=== PATIENT | female | born 1955 | race Caucasian/White ===

== ENCOUNTER → 2017-04-18 14:12 | Outpatient (CLI) | payer OTHER, SELFPAY ==
--- NOTE | 2017-04-18 14:16 | RAD_ITS ---
STUDY: X-RAY - LEFT SHOULDER REASON FOR EXAM: Female, 62 years old. Fall 2 weeks ago. Shoulder pain. TECHNIQUE: 4 view(s) of the shoulder. COMPARISON: None. FINDINGS: There is generalized osteopenia. Normal glenohumeral articulation. Normal acromioclavicular joint. Normal acromion. Normal humeral head and visualized proximal humerus. The soft tissue structures are unremarkable. The LAD noted is cardiomegaly, changes of coronary artery bypass grafting and a cardiac pacer. RAD/Shoulder min 2 Views IMPRESSION: Osteopenia with no acute pathology. Electronically Signed: Andriy Suarez MD at 15:04 EST , Service support ,
--- NOTE | 2017-04-18 14:16 | RAD_ITS ---
STUDY: X-RAY CHEST REASON FOR EXAM: Female, 62 years old. One-week history of shortness of breath/dyspnea. TECHNIQUE: PA and lateral views of the chest. COMPARISON: None. FINDINGS: The lungs are clear and expanded. There is no demonstrated pleural abnormality. Sternal cerclage wires and vascular clips are present from a prior sternotomy and coronary artery bypass graft procedure (CABG). Marked degree of cardiomegaly. A left-sided dual-chamber pacemaker is seen. Normal mediastinum and randy. Normal visualized pulmonary arteries. There is atherosclerotic calcification of the aortic arch with tortuosity. There are degenerative changes of the visualized thoracic spine. Normal visualized ribs, clavicles, and shoulders. There is no demonstrated abnormality of the visualized soft tissue structures of the upper abdomen. RAD/Chest PA and Lateral IMPRESSION: Marked degree of cardiomegaly. Electronically Signed: Krishan Guzman MD at 14:38 EST Tel [phone], Service support ,
== END ==
PROVIDERS: Family Provider Internal Medicine; PCP Internal Medicine; Visit Provider Internal Medicine
DX: M25.512 Pain in left shoulder (principal); R06.02 Shortness of breath
CPT/HCPCS: 71046; 73030

== ENCOUNTER 2017-05-10 19:30 | Emergency (ER) | payer OTHER, SELFPAY ==
[2017-05-10 19:31] VITALS: BP 155/89; PULSE 61; RESP 16; TEMP 37.2; O2SAT 94; BMI 29.7
[2017-05-10 19:59] LABS: Absolute Lymphocyte Count 1.35 X10^3/ul (0.83-4.51); Absolute Neutrophil Count 3.4 X10^3/uL (2.0-7.7); Basophil# 0.02 X10^3/uL; Basophil% 0.4 % (0-1); Eosinophil# 0.11 X10^3/uL; Hematocrit 35.4 % (37-47); Hemoglobin 11.2 g/dl (12.0-15.0); Lymphocyte # 1.35 X10^3/ul (4.0); Mean Corp Hgb Conc 31.6 g/gl (32-36); Mean Corpuscular Hgb 26.7 pg (27.0-32.0); Mean Corpuscular Volume 84.3 fL (81-99); Mean Platelet Vol. 9.2 fl (6.2-12.0); Monocyte# 0.52 X10^3/uL; Monocyte% 9.6 % (0-10); Neutrophil % 62.8 % (47-70); Platelet Count 160 K/mm3 (150-450); RBC Distribution Width SD 48.9 fl (35.1-43.9); White Blood Count 5.4 K/mm3 (4.4-11.0)
[2017-05-10 20:09] LABS: Anion Gap 7 (5-15); BUN 23 mg/dL (7-18); BUN/Creat Ratio 24.6 RATIO (10-20); Calcium,Total 9.6 mg/dL (8.5-10.1); Chloride 108 mmol/L (98-107); Creatinine, Serum 0.94 mg/dL (0.55-1.02); EST Glomerular Filtration Rate 64 mL/min (>60); Est Glom Filt Rate - Afr Amer 77 mL/min (>60); Estimated Creatinine Clearance 63.19 ml/min; Glucose 98 mg/dL (74-106); Potassium 3.6 mmol/L (3.5-5.1); Sodium Level 140 mmol/L (136-145)
[2017-05-10 20:11] LABS: POSITIVE COUNT NO; POSITIVE DIFFERENTIAL NO; POSITIVE MORPHOLOGY NO
--- NOTE | 2017-05-10 21:03 | EKG12_ITS ---
Test Reason : Blood Pressure : / mmHG Vent. Rate : 060 BPM Atrial Rate : 073 BPM P-R Int : 000 ms QRS Dur : 188 ms QT Int : 538 ms P-R-T Axes : 000 262 095 degrees QTc Int : 538 ms Ventricular-paced rhythm Biventricular pacemaker detected Abnormal ECG Confirmed by CHRISS RECIO ([id number]), editor trade journal MARCY BROCK ([id number] on 05/12/2017 2:50:18 PM Referred By: ALISTAIR Confirmed By:CHRISS RECIO
[2017-05-10 21:07] VITALS: BP 169/97; PULSE 62; RESP 18; O2SAT 98
[2017-05-10 21:08] VITALS: O2SAT 97
--- NOTE | 2017-05-10 21:09 | RAD_ITS ---
XR Chest 1 View INDICATION: short of breath COMPARISON: April 18, 2017 TECHNIQUE: Frontal view of the chest FINDINGS: Diamond size is enlarged, unchanged from previous exam. Sternotomy wires are noted and a cardiac pacemaker/AICD. The lungs appear clear. RAD/Chest 1 View (Portable) IMPRESSION: Stable cardiomegaly. No evidence of active infiltrate. at 2132 Reported and signed by: Irene Peck MD Electronically Signed: Irene Peck MD at 20:30 EST Tel , Service support ,
[2017-05-10 21:38] LABS: International Normalized Ratio 3.2; Prothrombin Time (Protime)PT. 31.2 SECONDS (11.7-14.9)
[2017-05-10 21:49] LABS: AST(SGOT) 28 U/L (15-37); Alanine Aminotransfer ALT/SGPT 32 U/L (13-56); Albumin, Serum 4.1 g/dL (3.2-5.0); Alkaline Phosphatase 83 U/L (45-117); Bilirubin, Direct 0.15 mg/dL (0.00-0.30); Globulin 3.8 g/dL (2.2-4.2); Protein, Total 7.9 g/dL (6.4-8.2)
[2017-05-10 21:59] LABS: Lipase 315 U/L (73-393)
[2017-05-10 22:14] LABS: BNP,B-Type NATRIURETIC PEPTIDE 849.2 pg/mL (0-100)
[2017-05-10 23:00] VITALS: BP 171/95; PULSE 61; RESP 19; O2SAT 96
--- NOTE | 2017-05-10 23:05 | ED.VISSUMM ---
- ER Visit Summary Date of Service: 05/10/17 Chief Complaint: Chest pain History of Present Illness: The patient is a 62 F presenting with chest pain, shortness of breath. She states she has a band type sensation around her upper abdomen. She also complains of a midsternal chest heaviness x 4days. She complains of shortness of breath which is worse with laying down flat. She denies PE/DVT risk factors. She has a defibrillator/pacemaker, history of mitral valve replacement, history of CAD, NE, CHF, hypertension, hypercholesteremia, A. fib. She is on Coumadin. She has a history of shingles on right upper abdomen several months ago. Physical Examination: Vitals are stable. Patient is afebrile. Alert no acute distress. HEENT exam is unremarkable. Neck is supple. Lungs are clear and equal bilaterally. Heart is regular rate and rhythm. Abdomen is soft nontender nondistended. No rebound or guarding Extremities are unremarkable. Skin is warm and dry. No rash. No focal neurologic deficit. Remainder of exam is unremarkable. Emergency Department Course and Treatment: EKG is paced at rate of 60. She was given aspirin. Chest x-ray shows no acute process. CBC normal except for hemoglobin 11.2. BUN is 23. Liver and lipase are normal. INR is 3.2. Troponin is negative. BNP is 849.2. Pulse ox with ambulation is 93-96%. Discussed with Dr. Lay, hospitalist. She feels patient would be appropriate for discharge home to increase her home Lasix. Patient states she has Lasix at home which she takes as needed. She has not taken it recently. Patient states she would be able to take her Lasix when she returned home today. Her pain has been ongoing for 4 days. Repeat troponin was obtained and is negative. Patient is comfortable with discharge home. She will call Dr. Pack's office tomorrow for follow-up. She is advised return ED if she has any worsening complaints. Disposition: Discharge home Impression: CHF, chest pain This note was generated with [employer] dictation software. It may contain incorrect words, spelling, and punctuation that were not noted in review of the chart prior to signing ED Disposition - Plan for ED Patient: Chief Complaint: Abd Pain Instructions: ED CHF General Referrals: Erin Elizabeth DO [Primary Care Provider] - Tito Pack MD [STAFF PHYSICIAN] -
[2017-05-10 23:26] VITALS: O2SAT 96
[2017-05-10] MEDS: Aspirin 325 MG Tablet PO (23:30)
--- NOTE | 2017-05-11 00:46 | ED.DEP ---
ED Disposition - Plan for ED Patient: Chief Complaint: Abd Pain Instructions: ED CHF General Referrals: Erin Elizabeth DO [Primary Care Provider] - Tito Pack MD [STAFF PHYSICIAN] -
[2017-05-11 01:01] VITALS: RESP 14
== END 2017-05-11 01:02 | disposition home or self-care (01) ==
PROVIDERS: Emergency Provider Emergency Medicine; Family Provider Internal Medicine; PCP Internal Medicine
DX: I50.9 Heart failure, unspecified (principal); R07.9 Chest pain, unspecified; Z95.2 Presence of prosthetic heart valve; I10 Essential (primary) hypertension; E78.00 Pure hypercholesterolemia, unspecified; I48.91 Unspecified atrial fibrillation; Z79.01 Long term (current) use of anticoagulants; Z95.810 Presence of automatic (implantable) cardiac defibrillator; I25.2 Old myocardial infarction
CPT/HCPCS: 71045; 80048; 80076; 83690; 83880; 84484; 85025; 85610; 93005; 99284; A4216

== ENCOUNTER 2017-05-13 11:49 | Outpatient (RCR) | payer OTHER, SELFPAY ==
--- NOTE | 2017-05-13 13:06 | HP.PTEVAL_ITS ---
Patient's Visit Information JAYLEEN WALTERS is a 62 year old F referred to Physical Therapy by Erin NASH with a diagnosis of LEFT SHOULDER PAIN. Date of Evaluation: 05/13/17 Physical Therapist: Eduardo Meza PT, - Visit Plan Frequency: 2x /Week Duration: 4 Weeks Plan: PRECAUTION : PACEMAKER -NO ESTIM. CERVICAL /POSTURAL EX'S,STRENGTHNING,US /MHP - Subjective Subjective: This 62 y/o female presents to physical therapy left shoulder pain due to falling on left arm outstretched. DOI March 28 immediate pain didnt seen DR Santiago and did x-rays-. Patient pain Left UT shoulder to hand. Patient reports with lifting,turning neck ,place pressure on hand.Patient affects ADL'S and housework ,sef hygine and activities above 90 degrees.Patient reports heat makes symptoms better.Patient c/o parathesia/tingling hand.PRECUATION PACEMAKER/ DIFFIBULATOR and 25# lifting. Patient pain affects sleeping. Patient is left hand dominate. Denies HERNANDEZ/nausea/tinnutus.Patient pain affects job demands. VOCATION: [employer] SOCIAL: - Pain Left Shoulder Pain Intensity (Out of 10): 6 Pain Intensity Range: 10 Comment: 8/10 below elbow - Objective POSTURE: rounded shoulders head foward. PALPATION : tender AC. NEURO: C/O denies parathesia/hands,reflexes C5-6-7 2/3. AROM: shoulder flexion 150 flexion ,abd 145 scap plane,ER 90 ,IR 70. 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 MMT: RTC 4/5,DELTOID 4/5 ,WRIST 4/5. CERVICAL ROM: flexion min/mod with pain, extension mod/severe with pain,lateral flexion mod loss,rotation mod with pain to left - Special Tests C/S Radiculapathy - Left Upper limb tension test: Negative C/S Radiculapathy - Right Upper limb tension test: Negative C/S Radiculapathy - Left Spurlings: Positive C/S Radiculapathy - Right Spurlings: Negative C/S Radiculapathy - Left Cervical distraction: Negative C/S Radiculapathy - Right Cervical distraction: Negative Sharp Beba: Negative Vertebral Artery Test: Negative Alar Ligament Test: Negative Cervical Sitting: Protrusion - Mechanical Response: No effect Cervical Sitting: Protrusion - Symptoms During Testing: Increases Cervical Sitting: Protrusion - Symptoms After Testing: No worse Cervical Sitting: Retraction - Mechanical Response: No effect Cervical Sitting: Retraction - Symptoms During Testing: Increases Cervical Sitting: Retraction - Symptoms After Testing: No worse Cervical Sitting: Flexion - Mechanical Response: No effect Cervical Sitting: Flexion - Symptoms During Testing: Increases Cervical Sitting: Flexion - Symptoms After Testing: No worse L Shoulder Drop Sign - IS Test: Negative L Shoulder Empty Can - SS: Negative L Shoulder Neer - Impingement: Negative L Shoulder Kaur Altaf - Impingement: Negative - Goals Goal 1:: Independant with HEP Goal Time Frame: 4-6 Weeks Goal 2:: Independant with posture for ADL'S Goal Time Frame: 4-6 Weeks Goal 3:: Patient decrease symtoms left UT and arm by 50% or greater to improve function with ADL'S Goal Time Frame: 4-6 Weeks Goal 4:: Patient to improve cervical ROM without poain for function of recovery Goal Time Frame: 4-6 Weeks Goal 5:: Patient be able to perform ADL'S and housework tasks with min limations with left UE Goal Time Frame: 4-6 Weeks - Rehabilitation Potential Physical Therapy Diagnosis: This patient appears to have cervical radiculopathy with symptoms radiating to left UT with cervical movement ,+ spurling,- shoulder test, RTC strength is good ,c/o parathesia/tingling. 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 Rehabilitation Potential: Good - Anticipated Interventions Patient/Client Instruction: Educate patient on: Condition, Plan of Care For the Purpose of:: To decrease pain, To increase ROM, To improve nutrient delivery to tissue, To increase oxygenation perfusion, To improve muscle performance and motor function, To improve ability to perform ADL's, To increase tolerance to activity/condition/position, To improve ability of physical actions for home/community/work/leisure, To improve health of tissue, To decrease soft tissue restriction, To assume or resume ADL's, To reduce risk of recurrence, To improve ability to perform tasks related to life management, To improve tolerance to ADL's Therapeutic Exercise to Include: Strength training, Postural training, Flexibilty training, Scapular Strength/Stabilization For the Purpose of:: To decrease pain, To increase ROM, To improve muscle performance and motor function, To improve ability to perform ADL's, To increase tolerance to activity/condition/position, To decrease level of supervision to perform tasks, To improve ability of physical actions for home/ community/work/leisure, To improve gait and locomotor functions, To improve health of tissue, To increase flexibility/ROM, To improve ability to perform tasks related to life management, To improve tolerance to ADL's Thermo therapy (hot pack): Yes Ultrasound (thermal/non thermal): Yes For the Purpose of:: To decrease pain, To increase ROM, To improve nutrient delivery to tissue, To increase oxygenation perfusion, To improve health of tissue, To decrease soft tissue restriction Thank you for the opportunity to evaluate your patient. For Medicare and Medicare HMO plans, please review the plan of care and approve it. It will need to be FAXED BACK to us at [phone] for Medicare purposes. Please let me know if there are questions or concerns regarding this plan of care. Physician Signature: Date:
--- NOTE | 2017-06-08 08:42 | HP.PTDCNRP_ITS ---
HP - Discharge Summary (1) - Patient Information JAYLEEN WALTERS was seen in my office for initial evaluation on 05/13/17. The following Plan of Care was established for this patient: Initial Frequency: 2x /Week Initial Duration: 4 Weeks - Anticipated Interventions Patient/Client Instruction: Educate patient on: Condition, Plan of Care For the Purpose of:: To decrease pain, To increase ROM, To improve nutrient delivery to tissue, To increase oxygenation perfusion, To improve muscle performance and motor function, To improve ability to perform ADL's, To increase tolerance to activity/condition/position, To improve ability of physical actions for home/community/work/leisure, To improve health of tissue, To decrease soft tissue restriction, To assume or resume ADL's, To reduce risk of recurrence, To improve ability to perform tasks related to life management, To improve tolerance to ADL's Therapeutic Exercise to Include: Strength training, Postural training, Flexibilty training, Scapular Strength/Stabilization For the Purpose of:: To decrease pain, To increase ROM, To improve muscle performance and motor function, To improve ability to perform ADL's, To increase tolerance to activity/condition/position, To decrease level of supervision to perform tasks, To improve ability of physical actions for home/ community/work/leisure, To improve gait and locomotor functions, To improve health of tissue, To increase flexibility/ROM, To improve ability to perform tasks related to life management, To improve tolerance to ADL's Thermo therapy (hot pack): Yes Ultrasound (thermal/non thermal): Yes For the Purpose of:: To decrease pain, To increase ROM, To improve nutrient delivery to tissue, To increase oxygenation perfusion, To improve health of tissue, To decrease soft tissue restriction This patient was last seen in our office 05/13/17. Pertinent comments regarding their Physical therapy will appear below: Patient seen for PT inial evalution only. At this point I will be discontinuing this patient from physical therapy. I would be happy to see this patient again in the future if found appropriate by the physician. Thank you! Eduardo Meza, PT,
== END 2017-05-13 19:00 | disposition home or self-care (01) ==
LOC: PT 11:49
PROVIDERS: Family Provider Internal Medicine; PCP Internal Medicine; Visit Provider Internal Medicine
DX: M25.512 Pain in left shoulder (principal)
CPT/HCPCS: 97035; 97162

== ENCOUNTER → 2017-07-01 10:42 | Outpatient (CLI) | payer OTHER, SELFPAY ==
--- NOTE | 2017-07-01 10:45 | RAD_ITS ---
STUDY: X-RAY - SOFT TISSUE NECK REASON FOR EXAM: Female, 62 years old. Allergic reaction and throat swelling. TECHNIQUE: AP and lateral view(s) of the neck were obtained. COMPARISON: None. FINDINGS: Normal visualized nasopharynx, oropharynx, hypopharynx. Normal epiglottis. Normal visualized subglottic tracheal air column. Normal prevertebral soft tissue structures. Normal visualized osseous structures. The soft tissue structures are unremarkable. RAD/Neck for Soft Tissue IMPRESSION: Normal x-ray soft tissue neck. Electronically Signed: rKishan Guzman MD at 11:03 EDT Tel [phone], Service support ,
== END ==
PROVIDERS: Family Provider Internal Medicine; PCP Internal Medicine; Visit Provider Internal Medicine
DX: T78.40XA Allergy, unspecified, initial encounter (principal)
CPT/HCPCS: 70360

== ENCOUNTER → 2017-12-30 14:31 | Outpatient (CLI) | payer OTHER, SELFPAY ==
--- NOTE | 2017-12-30 14:33 | ECHOD_ITS ---
Reason For Study: VALVE REPLACEMENT Procedure This was a 2D Doppler, Color Flow transthoracic echocardiogram. The exam was of fair technical quality due to poor acoustic windows.. The study was technically difficult. Exam performed in department. Left Ventricle Moderately dilated left ventricle. Moderately severe global left ventricular systolic dysfunction. The estimated ejection fraction is 30 %. Diastolic function is indeterminate. Right Ventricle Normal RV size. ICD or pacer leads identified within the right ventricle. Normal systolic function. Atria The left atrium is severely enlarged. The right atrium is mildly enlarged. ICD or pacer leads identified within the right atrium. No doppler evidence for ASD. Mitral Valve Stable appearing mechanical mitral valve apparatus. Trivial transvalvular insufficiency of the mitral valve. Tricuspid Valve Normal tricuspid valve. Moderate (2+) eccentric tricuspid valve insufficiency. Right ventricular systolic pressure estimated to be 41 mmHg. Aortic Valve The aortic valve is not well visualized. Pulmonic Valve The pulmonic valve is not well visualized. Great Vessels Normal sized aortic root. Pericardium/Pleural No pericardial effusion. MMode/2D Measurements & Calculations LVIDd: 6.3 cm IVSd: 1.2 cm Ao root diam: 3.3 cm LVIDs: 5.3 cm LVPWd: 1.2 cm LA dimension: 6.0 cm FS: 17.0 % LAV(MOD-bp): 170.2 ml LVAd ap4: 46.4 cm2 EDV(MOD-sp2): 179.1 ml LAV(MOD-bp) Indexed: 81.0 ml/m2 EDV(MOD-sp4): 200.1 ml EF(MOD-sp2): 45.0 % LAV(MOD-sp2): 107.4 ml EDV(sp4-el): 193.4 ml LAV(MOD-sp4): 232.2 ml LVAs ap4: 32.3 cm2 ESV(MOD-sp4): 110.3 ml ESV(sp4-el): 104.1 ml EF(MOD-sp4): 44.9 % EF(sp4-el): 46.2 % SV(MOD-sp4): 89.8 ml SV(MOD-sp2): 80.5 ml SV(sp4-el): 89.3 ml LA A4 area: 48.2 cm2 RA A4 area: 28.9 cm2 Doppler Measurements & Calculations MV E max keegan: 158.8 cm/sec MV V2 max: 176.6 cm/sec Ao V2 max: 102.5 cm/sec MV max P.5 mmHg Ao max P.2 mmHg MV V2 mean: 91.9 cm/sec Ao V2 mean: 75.6 cm/sec MV mean P.1 mmHg Ao mean P.5 mmHg MV V2 VTI: 41.8 cm Ao V2 VTI: 23.5 cm LV V1 max: 92.9 cm/sec PA V2 max: 74.9 cm/sec TR max keegan: 288.5 cm/sec LV V1 max P.5 mmHg TR max P.3 mmHg LV V1 mean P.8 mmHg LV V1 mean: 63.1 cm/sec LV V1 VTI: 22.0 cm Interpretation Summary The study was technically difficult. Moderately dilated left ventricle. Moderately severe global left ventricular systolic dysfunction. The estimated ejection fraction is 30 %. The left atrium is severely enlarged. The right atrium is mildly enlarged. Stable appearing mechanical mitral valve apparatus. Trivial transvalvular insufficiency of the mitral valve. Moderate (2+) eccentric tricuspid valve insufficiency. Right ventricular systolic pressure estimated to be 41 mmHg. Diastolic function is indeterminate. Ordering Physician: Tito Pack Referring Physician: WES SUAREZ Performed By: Marisol Nieves, RDCS, RVT
== END ==
PROVIDERS: Family Provider Internal Medicine; PCP Internal Medicine; Referring Provider Internal Medicine Cardiovascular Disease; Visit Provider Internal Medicine Cardiovascular Disease
DX: Z95.810 Presence of automatic (implantable) cardiac defibrillator (principal)
CPT/HCPCS: 93306

== ENCOUNTER → 2018-12-18 10:17 | Outpatient (CLI) | payer OTHER, MEDICARE, SELFPAY ==
[2018-12-18 09:37] VITALS: BMI 30.1
--- NOTE | 2018-12-18 10:25 | RAD_ITS ---
STUDY: X-RAY CHEST REASON FOR EXAM: Female, 63 years old. Bedside chest pain for several months. TECHNIQUE: PA and lateral views of the chest. COMPARISON: April 18, 2017. FINDINGS: The lungs are clear and expanded. There is no demonstrated pleural abnormality. The heart is moderately enlarged. Stable cardiac pacemaker. Stable median sternotomy. Normal mediastinum and randy. Normal visualized pulmonary arteries. There is atherosclerotic calcification of the aortic arch with tortuosity. There are diffuse degenerative changes of the visualized thoracic spine. Normal visualized ribs, clavicles, and shoulders. There is no demonstrated abnormality of the visualized soft tissue structures of the upper abdomen. RAD/Chest PA and Lateral IMPRESSION: No acute cardiopulmonary disease or interval change. Electronically Signed: Luis Rosa DO at 16:58 EDT Tel [phone], Service support ,
== END ==
PROVIDERS: Family Provider Internal Medicine; PCP Internal Medicine; Referring Provider Nurse Practitioner Family; Visit Provider Nurse Practitioner Family
DX: R07.89 Other chest pain (principal); I48.91 Unspecified atrial fibrillation; I42.9 Cardiomyopathy, unspecified; E78.5 Hyperlipidemia, unspecified; I10 Essential (primary) hypertension
CPT/HCPCS: 71046

== ENCOUNTER → 2019-04-09 14:42 | Outpatient (CLI) | payer MEDICARE, SELFPAY ==
[2018-12-18 09:37] VITALS: BMI 30.1
--- NOTE | 2019-04-09 14:49 | BI_ITS ---
MAMMOGRAPHY - BILATERAL SCREENING REASON FOR EXAM: Female, 64 years old. Routine annual screening examination. PERTINENT HISTORY: Mother with breast cancer. TECHNIQUE: Digital bilateral breast carlos (3D mammographic acquisition) in the CC and MLO projections. 2-D mediolateral oblique (MLO) and craniocaudad (CC) views of both breasts were obtained. CAD: Full Field Digital Mammography with Computer Added Detection was performed. COMPARISON: Comparison is made with prior study dated March 09, 2017. FINDINGS: Breast Composition: The breasts are heterogeneously dense, which may obscure small masses. There are no dominant masses or suspicious calcifications. A pacemaker battery pack is once again seen in the left axillary region. No other significant abnormalities are identified. There has been no significant change since the prior study. BI/SCREEN MAMM (CAD) W/CARLOS BILAT IMPRESSION: Stable bilateral screening mammogram. Yearly follow-up mammogram recommended. (A) ASSESSMENT CATEGORY: BIRADS Category 2: Benign. A letter regarding these results will be sent to the patient by the facility within 30 days. Approximately 10% of breast cancers are not detected by mammography. A normal mammogram should not delay biopsy of a clinically suspicious abnormality. [id number] Electronically Signed: Krishan Guzman, at 8:24 EST , Service support ,
== END ==
PROVIDERS: Family Provider Internal Medicine; PCP Internal Medicine; Referring Provider Nurse Practitioner; Visit Provider Nurse Practitioner
DX: Z12.31 Encounter for screening mammogram for malignant neoplasm of breast (principal)
CPT/HCPCS: 77063; 77067

== ENCOUNTER → 2019-08-08 11:38 | Outpatient (CLI) | payer MEDICARE, SELFPAY ==
[2019-07-25 14:46] VITALS: BMI 30.7
--- NOTE | 2019-08-08 11:49 | EKG12_ITS ---
Test Reason : PREOP Blood Pressure : / mmHG Vent. Rate : 060 BPM Atrial Rate : 060 BPM P-R Int : 000 ms QRS Dur : 186 ms QT Int : 524 ms P-R-T Axes : 000 179 029 degrees QTc Int : 524 ms Sinus rhythm with frequent ventricular-paced complexes Right bundle branch block Abnormal ECG Confirmed by CHEN HAMMONDS, LILIANE ([id number]), proposal editor MARCY BROCK ([id number]) on 08/14/2019 2:51:01 PM Referred By: Tito Pack Confirmed By:LILIANE SIDDIQUI MD
== END ==
PROVIDERS: PCP Internal Medicine; Referring Provider Internal Medicine Cardiovascular Disease; Visit Provider Internal Medicine Cardiovascular Disease
DX: I48.0 Paroxysmal atrial fibrillation (principal); I10 Essential (primary) hypertension; Z95.2 Presence of prosthetic heart valve; I50.22 Chronic systolic (congestive) heart failure; I42.0 Dilated cardiomyopathy; Z95.0 Presence of cardiac pacemaker
CPT/HCPCS: 93005

== ENCOUNTER → 2019-09-12 | Outpatient (CLI) | payer MEDICARE, SELFPAY ==
[2019-09-12 09:30] VITALS: BMI 32.0
[2019-09-12 11:34] LABS: Thyroid Stim Hormone (TSH) 2.97 uIU/mL (0.358-3.74)
== END | disposition home or self-care (01) ==
LOC: LAB 10:24
PROVIDERS: PCP Internal Medicine; Referring Provider Nurse Practitioner; Visit Provider Nurse Practitioner
DX: R79.89 Other specified abnormal findings of blood chemistry (principal)
CPT/HCPCS: 36415; 84443

== ENCOUNTER → 2019-10-24 14:48 | Outpatient (CLI) | payer MEDICARE, SELFPAY ==
[2019-09-12 09:30] VITALS: BMI 32.0
--- NOTE | 2019-10-24 14:58 | RAD_ITS ---
STUDY: X-RAY - LEFT ANKLE REASON FOR EXAM: Female, 64 years old. FALL X1 MONTH AGO, PAIN TECHNIQUE: 3 view(s) of the ankle. COMPARISON: None. FINDINGS: Normal visualized distal tibia and fibula. Normal medial and lateral malleoli. Normal tibiotalar articulation and ankle mortise. Calcaneal spurs. Questionable avulsion along the lateral aspect of the talus. Soft tissue swelling. RAD/Ankle min 3 Views IMPRESSION: Soft tissue swelling. Portable avulsion fracture along the lateral aspect of the talus. Electronically Signed: Krishan Guzman, at 7:55 EDT , Service support ,
== END ==
PROVIDERS: PCP Internal Medicine; Referring Provider Podiatrist; Visit Provider Podiatrist
DX: S93.402A Sprain of unspecified ligament of left ankle, initial encounter (principal)
CPT/HCPCS: 73610

== ENCOUNTER → 2019-11-12 | Outpatient (CLI) | payer MEDICARE, SELFPAY ==
[2019-10-29 13:34] VITALS: BMI 31.7
--- NOTE | 2019-11-12 08:16 | RAD_ITS ---
STUDY: X-RAY CHEST REASON FOR EXAM: Female, 64 years old. SOB, PT STATES 2 OPEN HEART SURGERIES, PACEMAKER, ARTIFICIAL HEART VALVE, HBP MEDICATION TECHNIQUE: PA and lateral views of the chest. COMPARISON: 12/18/2018 FINDINGS: Left subclavian dual-lead AICD. Status post median sternotomy. The lungs are clear and expanded. There is no demonstrated pleural abnormality. There is moderate cardiac enlargement. Normal mediastinum and randy. Normal visualized pulmonary arteries. Normal visualized aortic arch and descending thoracic aorta. Normal visualized thoracic spine. Normal visualized ribs, clavicles, and shoulders. There is no demonstrated abnormality of the visualized soft tissue structures of the upper abdomen. RAD/Chest PA and Lateral IMPRESSION: No active disease per Electronically Signed: Derrell Easley MD at 17:23 EDT Tel , Service support ,
[2019-11-12 08:33] LABS: Erythrocyte Sedimentation Rate 9 mm/hr (0-30)
[2019-11-12 08:35] LABS: Absolute Lymphocyte Count 1.49 X10^3/uL (0.83-4.51); Absolute Neutrophil Count 2.3 X10^3/uL (2.0-7.7); Basophil# 0.04 X10^3/uL; Basophil% 0.9 % (0-1); Eosinophil# 0.22 X10^3/uL; Eosinophils% 4.9 % (0-5); Hematocrit 36.6 % (37-47); Hemoglobin 12.1 g/dL (12.0-15.0); Lymphocyte # 1.49 X10^3/ul (4.0); Lymphocyte % 33.5 % (19-41); Mean Corp Hgb Conc 33.1 g/dL (32-36); Mean Corpuscular Hgb 29.2 pg (27.0-32.0); Mean Corpuscular Volume 88.4 fL (81-99); Mean Platelet Vol. 10.1 fl (6.2-12.0); Monocyte# 0.44 X10^3/uL; Monocyte% 9.9 % (0-10); NRBC Flagged by Analyzer 0 % (0-5); Neutrophil # 2.25 X10^3/uL (2.7-7.7); Neutrophil % 50.6 % (47-70); Platelet Count 167 K/mm3 (150-450); RBC Distribution Width CV 15.9 % (11.6-14.6); RBC Distribution Width SD 50.6 fl (35.1-43.9); Red Blood Count 4.14 M/mm3 (4.2-5.4); White Blood Count 4.5 K/mm3 (4.4-11.0)
[2019-11-12 08:50] LABS: Hemoglobin A1c 5.9 % (3.8-5.6)
[2019-11-12 09:00] LABS: AST(SGOT) 28 U/L (15-37); Alanine Aminotransfer ALT/SGPT 45 U/L (13-56); Albumin, Serum 3.9 g/dL (3.2-5.0); Alkaline Phosphatase 91 U/L (45-117); Anion Gap 8 (5-15); BUN 17 mg/dL (7-18); BUN/Creat Ratio 18.8 RATIO (10-20); CRP 4.89 mg/L (0.0-3.0); Calcium,Total 9.4 mg/dL (8.5-10.1); Chloride 105 mmol/L (98-107); EST Glomerular Filtration Rate 66 mL/min (>60); Est Glom Filt Rate - Afr Amer 80 mL/min (>60); Globulin 3.9 g/dL (2.2-4.2); Glucose 117 mg/dL (74-106); Potassium 3.6 mmol/L (3.5-5.1); Protein, Total 7.8 g/dL (6.4-8.2); Sodium Level 140 mmol/L (136-145); Thyroid Stim Hormone (TSH) 3.92 uIU/mL (0.358-3.74)
[2019-11-12 09:46] LABS: Microalbumin:Creatinine Ratio 730.5 mg/g CRE (<30 mg/g CRE)
[2019-11-12 11:39] LABS: Vitamin B12 400 pg/mL (211-911); Vitamin D,25 Hydroxy 50.4 ng/mL
== END | disposition home or self-care (01) ==
PROVIDERS: Nurse Practitioner Family; PCP Internal Medicine; Referring Provider Internal Medicine; Visit Provider Internal Medicine
DX: I42.8 Other cardiomyopathies (principal); I48.0 Paroxysmal atrial fibrillation; R06.00 Dyspnea, unspecified; E11.9 Type 2 diabetes mellitus without complications; E55.9 Vitamin D deficiency, unspecified; R53.83 Other fatigue; Z79.01 Long term (current) use of anticoagulants
CPT/HCPCS: 36415; 71046; 80053; 82043; 82306; 82570; 82607; 83036; 83880; 84443; 85025; 85652; 86140

== ENCOUNTER → 2020-05-19 | Outpatient (CLI) | payer MEDICARE, SELFPAY ==
[2019-10-29 13:34] VITALS: BMI 31.7
--- NOTE | 2020-05-19 11:22 | RAD_ITS ---
STUDY: X-RAY CHEST REASON FOR EXAM: Female, 65 years old. SHORTNESS OF BREATH, LOW O2 LEVELS TODAY AT THE DOCTOR TECHNIQUE: PA and lateral views of the chest. COMPARISON: Comparison is made with prior study dated 11/12/2019. FINDINGS: The lungs are clear and expanded. There is no demonstrated pleural abnormality. Sternal cerclage wires and vascular clips are present from a prior sternotomy and coronary artery bypass graft procedure (CABG). Moderate sized cardiomegaly. A left-sided dual-chamber pacemaker is seen. Normal mediastinum and randy. Normal visualized pulmonary arteries. There is atherosclerotic calcification of the aortic arch with tortuosity. There are degenerative changes of the visualized thoracic spine. Normal visualized ribs, clavicles, and shoulders. There is no demonstrated abnormality of the visualized soft tissue structures of the upper abdomen. RAD/Chest PA and Lateral IMPRESSION: Cardiomegaly. Status post CABG The lungs are clear. Electronically Signed: Krishan Guzman MD at 12:13 EST , Service support ,
[2020-05-19 11:33] LABS: International Normalized Ratio 2.7; Prothrombin Time (Protime)PT. 28.1 SECONDS (11.7-14.9)
[2020-05-19 11:41] LABS: D-Dimer Quantitative (DVT/PE) <= 0.27 FEU/ug/m (0.27-0.49)
[2020-05-19 11:57] LABS: BNP,B-Type NATRIURETIC PEPTIDE 161.8 pg/mL (0-100)
== END | disposition home or self-care (01) ==
PROVIDERS: PCP Internal Medicine; Referring Provider Internal Medicine; Visit Provider Internal Medicine
DX: R06.02 Shortness of breath (principal); Z79.01 Long term (current) use of anticoagulants
CPT/HCPCS: 71046; 83880; 85379; 85610

== ENCOUNTER → 2020-05-23 13:44 | Outpatient (CLI) | payer MEDICARE, SELFPAY ==
[2019-10-29 13:34] VITALS: BMI 31.7
[2020-05-19 15:19] VITALS: BMI 32.3
--- NOTE | 2020-05-23 13:48 | ECHOCS_ITS ---
Reason For Study: Valvular Heart Disease Procedure This was a 2D Doppler, Color Flow transthoracic echocardiogram. The study was technically difficult. Contrast injection was performed. Exam performed in department. Left Ventricle Moderately dilated left ventricle. Moderate concentric left ventricular hypertrophy. Moderately severe global left ventricular systolic dysfunction. The estimated ejection fraction is 30 %. Unable to assess diastolic dysfunction. Right Ventricle Normal RV size. ICD or pacer leads identified within the right ventricle. Normal systolic function. Atria The left atrium is severely enlarged. The right atrium is mildly enlarged. ICD or pacer leads identified within the right atrium. No doppler evidence for ASD. Mitral Valve Stable appearing mechanical mitral valve apparatus. Trivial transvalvular insufficiency of the mitral valve. Tricuspid Valve Normal tricuspid valve. Moderate (2+) eccentric tricuspid valve insufficiency. Right ventricular systolic pressure estimated to be 44 mmHg. Aortic Valve Trisinus/trileaflet aortic valve. Normal aortic valve. Pulmonic Valve The pulmonic valve is not well visualized. Great Vessels Normal sized aortic root. Pericardium/Pleural No pericardial effusion. Medication Diluted definity 3ml given slow IV push to enhance endocardial definition. MMode/2D Measurements & Calculations LVIDd: 6.3 cm IVSd: 1.7 cm Ao root diam: 3.1 cm LVIDs: 5.3 cm LVPWd: 1.3 cm FS: 15.6 % LAV(MOD-bp): 169.3 ml LVAd ap4: 42.3 cm2 SV(MOD-sp4): 46.7 ml LAV(MOD-bp) Indexed: 79.8 ml/m2 EDV(MOD-sp4): 163.2 ml LAV(MOD-sp2): 140.1 ml EDV(sp4-el): 163.1 ml LAV(MOD-sp4): 171.3 ml LVAs ap4: 33.8 cm2 ESV(MOD-sp4): 116.4 ml ESV(sp4-el): 114.3 ml EF(MOD-sp4): 28.6 % EF(sp4-el): 29.9 % SV(sp4-el): 48.8 ml LA A4 area: 42.2 cm2 LA dimension(2D): 5.5 cm RA A4 area: 21.6 cm2 Time Measurements MV dec time: 0.18 sec Doppler Measurements & Calculations MV V2 max: 170.7 cm/sec MV P1/2t max keegan: 168.3 cm/sec Ao V2 max: 112.4 cm/sec MV max P.7 mmHg MV P1/2t: 91.8 msec Ao max P.0 mmHg MV V2 mean: 94.1 cm/sec MV dec slope: 536.9 cm/sec2 Ao V2 mean: 71.9 cm/sec MV mean P.2 mmHg Ao mean P.3 mmHg MV V2 VTI: 42.0 cm MVA(P1/2t): 2.4 cm2 Ao V2 VTI: 23.5 cm LV V1 max: 77.2 cm/sec PA V2 max: 82.0 cm/sec TR max keegan: 319.0 cm/sec LV V1 max P.4 mmHg TR max P.7 mmHg Interpretation Summary The study was technically difficult. Contrast injection was performed. Moderately dilated left ventricle. Moderately severe global left ventricular systolic dysfunction. The estimated ejection fraction is 30 %. Moderate concentric left ventricular hypertrophy. The left atrium is severely enlarged. The right atrium is mildly enlarged. Stable appearing mechanical mitral valve apparatus. Trivial transvalvular insufficiency of the mitral valve. Moderate (2+) eccentric tricuspid valve insufficiency. Right ventricular systolic pressure estimated to be 44 mmHg. Unable to assess diastolic dysfunction. ICD or pacer leads identified within the right atrium ICD or pacer leads identified within the right ventricle. Ordering Physician: Erin Elizabeth Referring Physician: Erin Elizabeth Performed By: Elza Bullock, GALILEA, RVT
== END ==
PROVIDERS: PCP Internal Medicine; Referring Provider Internal Medicine; Visit Provider Internal Medicine
DX: I38 Endocarditis, valve unspecified (principal)
CPT/HCPCS: 93306; Q9957; A4216; C8929

== ENCOUNTER → 2021-01-09 12:14 | Outpatient (CLI) | payer MEDICARE, SELFPAY ==
[2021-01-09 12:41] LABS: INR Fingerstick 4.3; Prothrombin Time Fingerstick 46.3 SEC (11.9-14.4)
== END ==
PROVIDERS: PCP Internal Medicine; Referring Provider Internal Medicine Cardiovascular Disease; Visit Provider Internal Medicine Cardiovascular Disease
DX: I48.0 Paroxysmal atrial fibrillation (principal); Z95.2 Presence of prosthetic heart valve; Z79.01 Long term (current) use of anticoagulants
CPT/HCPCS: 36416; 85610

== ENCOUNTER → 2021-01-16 16:01 | Outpatient (CLI) | payer MEDICARE, SELFPAY ==
[2021-01-16 16:19] LABS: Absolute Lymphocyte Count 1.51 X10^3/uL (0.83-4.51); Basophil# 0.04 X10^3/uL; Basophil% 0.8 % (0-1); Eosinophil# 0.21 X10^3/uL; Hematocrit 36.3 % (37-47); Hemoglobin 11.9 g/dL (12.0-15.0); Lymphocyte # 1.51 X10^3/ul (0.83-4.51); Lymphocyte % 29.1 % (19-41); Mean Corp Hgb Conc 32.8 g/dL (32-36); Mean Corpuscular Hgb 30.2 pg (27.0-32.0); Mean Corpuscular Volume 92.1 fL (81-99); Mean Platelet Vol. 10.1 fl (6.2-12.0); Monocyte# 0.45 X10^3/uL; Monocyte% 8.7 % (0-10); NRBC Flagged by Analyzer 0 % (0-5); Neutrophil # 2.97 X10^3/uL (2.7-7.7); Neutrophil % 57.2 % (47-70); Platelet Count 180 K/mm3 (150-450); RBC Distribution Width CV 15.5 % (11.6-14.6); RBC Distribution Width SD 51.1 fl (35.1-43.9); Red Blood Count 3.94 M/mm3 (4.2-5.4); White Blood Count 5.2 K/mm3 (4.4-11.0)
[2021-01-16 16:50] LABS: Anion Gap 6 (5-15); BUN 22 mg/dL (7-18); BUN/Creat Ratio 17.1 RATIO (10-20); Calcium,Total 9.7 mg/dL (8.5-10.1); Chloride 104 mmol/L (98-107); Creatinine, Serum 1.29 mg/dL (0.55-1.02); EST Glomerular Filtration Rate 44 mL/min (>60); Est Glom Filt Rate - Afr Amer 53 mL/min (>60); Glucose 112 mg/dL (74-106); Potassium 3.9 mmol/L (3.5-5.1); Sodium Level 140 mmol/L (136-145); Thyroid Stim Hormone (TSH) 1.85 uIU/mL (0.358-3.74)
== END ==
PROVIDERS: PCP Internal Medicine; Referring Provider Nurse Practitioner Gerontology; Visit Provider Nurse Practitioner Gerontology
DX: R53.83 Other fatigue (principal)
CPT/HCPCS: 36415; 80048; 84443; 85025

== ENCOUNTER 2021-03-15 11:59 | Emergency (ER) | payer MEDICARE, SELFPAY ==
[2021-03-15 12:00] VITALS: BP 158/102; PULSE 60; RESP 14; TEMP 36.4; O2SAT 97; BMI 31.4
--- NOTE | 2021-03-15 12:46 | EKG12_ITS ---
Test Reason : RIGHT FLANK PAIN Blood Pressure : / mmHG Vent. Rate : 062 BPM Atrial Rate : 065 BPM P-R Int : 000 ms QRS Dur : 182 ms QT Int : 538 ms P-R-T Axes : 000 242 087 degrees QTc Int : 546 ms Ventricular-paced rhythm with occasional Premature ventricular complexes Abnormal ECG Confirmed by CHEN HAMMONDS, LILIANE ([id number]), editorial specialist DM TORRES ([id number]) on 03/17/2021 10:01:21 AM Referred By: BRIGITTE Confirmed By:LILIANE SIDDIUQI MD
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
[2021-03-15 13:18] LABS: Absolute Lymphocyte Count 1.32 X10^3/uL (0.83-4.51); Absolute Neutrophil Count 2.3 X10^3/uL (2.0-7.7); Basophil# 0.03 X10^3/uL; Basophil% 0.7 % (0-1); Eosinophil# 0.14 X10^3/uL; Eosinophils% 3.3 % (0-5); Hematocrit 36.1 % (37-47); Hemoglobin 11.8 g/dL (12.0-15.0); Lymphocyte # 1.32 X10^3/ul (0.83-4.51); Lymphocyte % 31.3 % (19-41); Mean Corp Hgb Conc 32.7 g/dL (32-36); Mean Corpuscular Hgb 30.5 pg (27.0-32.0); Mean Corpuscular Volume 93.3 fL (81-99); Mean Platelet Vol. 9.9 fl (6.2-12.0); Monocyte# 0.43 X10^3/uL; Monocyte% 10.2 % (0-10); NRBC Flagged by Analyzer 0 % (0-5); Neutrophil # 2.29 X10^3/uL (2.7-7.7); Neutrophil % 54.3 % (47-70); Platelet Count 165 K/mm3 (150-450); RBC Distribution Width CV 15.2 % (11.6-14.6); RBC Distribution Width SD 52.2 fl (35.1-43.9); Red Blood Count 3.87 M/mm3 (4.2-5.4); White Blood Count 4.2 K/mm3 (4.4-11.0)
--- NOTE | 2021-03-15 13:20 | RAD_ITS ---
STUDY: X-RAY CHEST REASON FOR EXAM: Female, 66 years old. atypical right side lung pain TECHNIQUE: Single AP portable view of the chest. COMPARISON: 05/19/2020 FINDINGS: Left subclavian dual-lead AICD which is unchanged. Status post median sternotomy. The lungs are clear and expanded. There is no demonstrated pleural abnormality. There is severe cardiac enlargement. Normal mediastinum and randy. Normal visualized pulmonary arteries. Normal visualized aortic arch and descending thoracic aorta. Normal visualized thoracic spine. Normal visualized ribs, clavicles, and shoulders. There is no demonstrated abnormality of the visualized soft tissue structures of the upper abdomen. RAD/Chest 1 View (Portable) IMPRESSION: No active disease. Electronically Signed: Derrell Easley MD at 13:56 EST Tel , Service support ,
[2021-03-15 13:30] LABS: International Normalized Ratio 1.5; Prothrombin Time (Protime)PT. 17.7 SECONDS (11.7-14.9)
[2021-03-15 13:36] LABS: ALB/GLOB Ratio 1.1 RATIO (0.9-2.4); AST(SGOT) 22 U/L (15-37); Alanine Aminotransfer ALT/SGPT 39 U/L (13-56); Alkaline Phosphatase 83 U/L (45-117); Anion Gap 7 (5-15); BUN 21 mg/dL (7-18); BUN/Creat Ratio 20.8 RATIO (10-20); Calcium,Total 9.9 mg/dL (8.5-10.1); Chloride 106 mmol/L (98-107); Creatinine, Serum 1.01 mg/dL (0.55-1.02); EST Glomerular Filtration Rate 58 mL/min (>60); Est Glom Filt Rate - Afr Amer 70 mL/min (>60); Estimated Creatinine Clearance 55.71 ml/min; Globulin 3.6 g/dL (2.2-4.2); Glucose 104 mg/dL (74-106); Lipase 183 U/L (73-393); Potassium 3.6 mmol/L (3.5-5.1); Protein, Total 7.6 g/dL (6.4-8.2); Sodium Level 141 mmol/L (136-145)
[2021-03-15 13:40] LABS: D-Dimer Quantitative (DVT/PE) <= 0.27 FEU/ug/m (0.27-0.49)
[2021-03-15 14:10] LABS: Mucous, Urine 0 SEEN /hpf (<or=2+)
[2021-03-15 14:12] LABS: Color, Urine Yellow (Yellow); Glucose, Dipstick Normal (Normal); Ketone-Dipstick Negative (Negative); Leukocyte Esterase-Dipstick 500 /ul (Negative); Nitrite-Dipstick Negative (Negative); Occult Blood-Urine 10 /ul (Negative); Protein-Dipstick 100 mg/dl (Negative); Urine Bilirubin Dipstick Negative (Negative); Urine Clarity Clear (Clear); Urine Urobilinogen Normal (Normal)
[2021-03-15 14:18] VITALS: BP 166/73; PULSE 61; RESP 14; O2SAT 98
[2021-03-15 14:21] LABS: Bacteria 2+ /hpf (None Seen); Red Blood Cells-Urine 0-5 SEEN /hpf (0-5); Squamous Epithelial Cells - UA 0-5 SEEN /hpf (5-10); White Blood Cells 25-50 SEEN /hpf (0-5)
[2021-03-15] MEDS: Cephalexin 250 MG Capsule 500 MG PO (15:50)
[2021-03-15 15:52] VITALS: BP 162/96; PULSE 59; RESP 16; O2SAT 97
== END 2021-03-15 15:53 | disposition home or self-care (01) ==
PROVIDERS: Emergency Provider Emergency Medicine; PCP Internal Medicine
DX: N39.0 Urinary tract infection, site not specified (principal); I48.0 Paroxysmal atrial fibrillation; R11.2 Nausea with vomiting, unspecified; J45.909 Unspecified asthma, uncomplicated; I11.0 Hypertensive heart disease with heart failure; I50.22 Chronic systolic (congestive) heart failure; F32.A Depression, unspecified; E78.5 Hyperlipidemia, unspecified; M54.9 Dorsalgia, unspecified; I25.2 Old myocardial infarction; Z86.16 Personal history of COVID-19; Z79.899 Other long term (current) drug therapy; Z87.440 Personal history of urinary (tract) infections; Z95.0 Presence of cardiac pacemaker; Z79.01 Long term (current) use of anticoagulants
CPT/HCPCS: 71045; 80053; 81001; 83690; 85025; 85379; 85610; 87086; 87088; 93005; 99283; A4216

== ENCOUNTER 2021-04-03 11:07 | Outpatient (CLI) | payer MEDICARE, SELFPAY ==
--- NOTE | 2021-04-03 11:10 | ECHOLC_ITS ---
Reason For Study: CMP Procedure This was a 2D Doppler, Color Flow transthoracic echocardiogram. Technically difficult due to body habitus. Contrast injection performed. The study was technically difficult. Contrast injection was performed. Exam performed in department. Left Ventricle Moderate global left ventricular systolic dysfunction. The estimated ejection fraction is 30 %. There is evidence of diastolic dysfunction. Right Ventricle Normal RV size. ICD or pacer leads identified within the right ventricle. Normal systolic function. Atria The left atrium is moderately enlarged. The right atrium is mildly enlarged. ICD or pacer leads identified within the right atrium. No doppler evidence for ASD. Mitral Valve Stable appearing mechanical mitral valve apparatus. Trivial transvalvular insufficiency of the mitral valve. Tricuspid Valve Normal tricuspid valve. Mild tricuspid valve insufficiency. Right ventricular systolic pressure estimated to be 35 mmHg. Aortic Valve The aortic valve is not well visualized. Pulmonic Valve The pulmonic valve is not well visualized. Trivial pulmonic valve insufficiency. Great Vessels The aortic root is not well visualized. Pericardium/Pleural No pericardial effusion. Medication 22 gauge I.V. with prn adaptor inserted into right arm. Diluted definity 4ml given slow IV push to enhance endocardial definition. MMode/2D Measurements & Calculations LAV(MOD-sp4): 189.2 ml LA A4 area: 44.4 cm2 RA A4 area: 28.0 cm2 Time Measurements MV dec time: 0.45 sec Doppler Measurements & Calculations MV E max chun: 120.8 cm/sec Lat Peak E' Chun: 6.8 cm/sec Med Peak E' Chun: 4.4 cm/sec E/E' lat: 17.7 E/E' med: 27.5 PA V2 max: 80.9 cm/sec TR max chun: 282.7 cm/sec TR max P.0 mmHg ECHO/Echo Limited w/Contrast Interpretation Summary The study was technically difficult. Contrast injection was performed. Moderate global left ventricular systolic dysfunction. The estimated ejection fraction is 30 %. The left atrium is moderately enlarged. The right atrium is mildly enlarged. Stable appearing mechanical mitral valve apparatus. Trivial transvalvular insufficiency of the mitral valve. Mild tricuspid valve insufficiency. Trivial pulmonic valve insufficiency. Right ventricular systolic pressure estimated to be 35 mmHg. There is evidence of diastolic dysfunction. ICD or pacer leads identified within the right atrium ICD or pacer leads identified within the right ventricle. Ordering Physician: Alia Sotelo Referring Physician: Erin Elizabeth M.D. Performed By: Glen Conner RCS
== END 2021-04-03 23:59 | disposition short-term general hospital (02) ==
LOC: CVS 11:09
PROVIDERS: PCP Internal Medicine; Referring Provider Nurse Practitioner Gerontology; Visit Provider Nurse Practitioner Gerontology
DX: I42.8 Other cardiomyopathies (principal)
CPT/HCPCS: 93308; Q9957; A4216; C8924

== ENCOUNTER → 2021-07-17 | Outpatient (CLI) | payer MEDICARE, SELFPAY ==
[2021-07-17 16:21] LABS: Absolute Lymphocyte Count 1.41 X10^3/uL (0.83-4.51); Absolute Neutrophil Count 2.3 X10^3/uL (2.0-7.7); Basophil# 0.04 X10^3/uL; Basophil% 0.9 % (0-1); Eosinophil# 0.15 X10^3/uL; Eosinophils% 3.5 % (0-5); Hematocrit 37.5 % (37-47); Hemoglobin 12.2 g/dL (12.0-15.0); Lymphocyte # 1.41 X10^3/ul (0.83-4.51); Lymphocyte % 32.6 % (19-41); Mean Corp Hgb Conc 32.5 g/dL (32-36); Mean Corpuscular Hgb 30.3 pg (27.0-32.0); Mean Corpuscular Volume 93.3 fL (81-99); Mean Platelet Vol. 9.7 fl (6.2-12.0); Monocyte# 0.45 X10^3/uL; Monocyte% 10.4 % (0-10); NRBC Flagged by Analyzer 0 % (0-5); Neutrophil # 2.26 X10^3/uL (2.7-7.7); Neutrophil % 52.4 % (47-70); Platelet Count 175 K/mm3 (150-450); RBC Distribution Width CV 15.2 % (11.6-14.6); RBC Distribution Width SD 52.1 fl (35.1-43.9); Red Blood Count 4.02 M/mm3 (4.2-5.4); White Blood Count 4.3 K/mm3 (4.4-11.0)
[2021-07-17 16:45] LABS: Anion Gap 5 (5-15); BUN 21 mg/dL (7-18); BUN/Creat Ratio 19.8 RATIO (10-20); Calcium,Total 10.4 mg/dL (8.5-10.1); Chloride 106 mmol/L (98-107); Creatinine, Serum 1.06 mg/dL (0.55-1.02); EST Glomerular Filtration Rate 55 mL/min (>60); Est Glom Filt Rate - Afr Amer 66 mL/min (>60); Glucose 111 mg/dL (74-106); Magnesium 2.2 mg/dL (1.6-2.6); Potassium 3.7 mmol/L (3.5-5.1); Sodium Level 141 mmol/L (136-145)
[2021-07-17 16:58] LABS: BNP,B-Type NATRIURETIC PEPTIDE 306.6 pg/mL (0-100)
== END | disposition home or self-care (01) ==
LOC: LAB 15:53
PROVIDERS: PCP Internal Medicine; Visit Provider Nurse Practitioner Gerontology
DX: R53.83 Other fatigue (principal); R06.01 Orthopnea
CPT/HCPCS: 36415; 80048; 83735; 83880; 84443; 85025

== ENCOUNTER → 2021-07-31 | Outpatient (CLI) | payer MEDICARE, SELFPAY ==
--- NOTE | 2021-07-31 15:07 | PFTCOMP_ITS ---
COMPLETE PULMONARY FUNCTION TEST INTERPRETATION Brief HPI: Patient is a 66-year-old female, currently under the care of Dr. Elizabeth, who presents to [facility] for complete pulmonary function tests secondary to diagnosis of dyspnea. Respiratory therapist reports good effort and reproducible results. Interpretation: Forced expiration spirometry shows no large airways obstructive ventilatory defect with an FEV1 of 61% predicted. There is no significant bronchodilator response by strict ATS criteria. Spirograms are of good quality and plateau normally. The respiratory flow volume loop shows a normal pattern. Lung volumes by body plethysmography show a decreased total lung capacity at 4.57 L, 78% predicted. FRC and RV are elevated out of proportion. Lung volume measurements are consistent with air-trapping. Diffusion capacity by carbon monoxide is decreased at 60% predicted. The airway resistance is elevated. No previous pulmonary function tests were available for review. Impression: Mild restrictive ventilatory defect with a symmetric reduction diffusion capacity. There is subtle stigmata of possible concomitant small airways disease.
== END | disposition home or self-care (01) ==
LOC: PSN 13:18
PROVIDERS: PCP Internal Medicine; Referring Provider Nurse Practitioner Gerontology; Visit Provider Nurse Practitioner Gerontology
DX: R06.00 Dyspnea, unspecified (principal); J45.909 Unspecified asthma, uncomplicated
CPT/HCPCS: 94060; 94726; 94729

== ENCOUNTER → 2021-11-11 | Outpatient (CLI) | payer MEDICARE, SELFPAY ==
--- NOTE | 2021-11-11 13:22 | CPS ---
Patient scheduled for Methacholine Testing. Pre testing showed a decreased FEV1 and FVC from her pulmonary function testing done in July. Her FEV1 now meets a contraindication for Methacholine testing. Called Dr. Louie Ocasio to review and he has determined to hold this testing for now. Reasoning explained to patient who verbalizes understanding and is a patient of Dr. Ocasio's.
== END | disposition home or self-care (01) ==
LOC: PSN 12:45
PROVIDERS: PCP Internal Medicine; Referring Provider Internal Medicine Critical Care Medicine; Visit Provider Internal Medicine Critical Care Medicine
DX: Z00.00 Encounter for general adult medical examination without abnormal findings (principal)

== ENCOUNTER 2021-11-22 08:42 | Emergency (ER) | payer MEDICARE, SELFPAY ==
[2021-11-22 08:46] VITALS: BP 171/96; PULSE 94; RESP 14; TEMP 36.6; O2SAT 93; BMI 30.6
--- NOTE | 2021-11-22 08:59 | RAD_ITS ---
EXAM: XR CHEST, 1 VIEW CLINICAL INDICATION: dyspnea TECHNIQUE: Frontal view of the chest. This report was created using [employer] mobile report generation technology. COMPARISON: 03/15/2021 FINDINGS: LUNGS AND PLEURAL SPACES: Unremarkable. No consolidation or edema. No pneumothorax. No effusion. HEART: Unremarkable. Cardiac silhouette not enlarged. MEDIASTINUM: Central airways and mediastinal contour are unremarkable. BONES/JOINTS: Unremarkable. SOFT TISSUES: Unremarkable. TUBES, LINES AND DEVICES: Cardiac silhouette is enlarged in size but stable. Left-sided pacemaker in stable position. RAD/Chest 1 View (Portable) IMPRESSION: Stable cardiomegaly with no pulmonary abnormality. Electronically Signed: Kalpesh Stapleton MD at 10:02 EDT ,
--- NOTE | 2021-11-22 08:59 | EKG12_ITS ---
Test Reason : Blood Pressure : / mmHG Vent. Rate : 066 BPM Atrial Rate : 050 BPM P-R Int : 000 ms QRS Dur : 190 ms QT Int : 538 ms P-R-T Axes : 000 230 093 degrees QTc Int : 564 ms Ventricular-paced rhythm with frequent Premature ventricular complexes Abnormal ECG Confirmed by ARCENIO HAMMONDS, ANTONELLA ([id number]), acquisitions editor DM TORRES ([id number]) on 11/24/2021 9:15:41 AM Referred By: Confirmed By:SUSIE RG MD
[2021-11-22] MEDS: Ipratropium/Albuterol Sulfate 3 ML AMPUL.NEB INHALATION (09:05)
[2021-11-22 09:07] VITALS: PULSE 68; RESP 16; O2SAT 96
[2021-11-22 09:27] VITALS: O2SAT 95
[2021-11-22 09:48] LABS: Absolute Lymphocyte Count 1.12 X10^3/uL (0.83-4.51); Absolute Neutrophil Count 4.3 X10^3/uL (2.0-7.7); Basophil# 0.03 X10^3/uL; Basophil% 0.5 % (0-1); Eosinophil# 0.09 X10^3/uL; Eosinophils% 1.5 % (0-5); Hematocrit 35.5 % (37-47); Hemoglobin 11.4 g/dL (12.0-15.0); Lymphocyte # 1.12 X10^3/ul (0.83-4.51); Lymphocyte % 18.4 % (19-41); Mean Corp Hgb Conc 32.1 g/dL (32-36); Mean Corpuscular Hgb 27.8 pg (27.0-32.0); Mean Corpuscular Volume 86.6 fL (81-99); Mean Platelet Vol. 10.2 fl (6.2-12.0); Monocyte# 0.57 X10^3/uL; Monocyte% 9.4 % (0-10); NRBC Flagged by Analyzer 0 % (0-5); Neutrophil # 4.25 X10^3/uL (2.7-7.7); Neutrophil % 69.7 % (47-70); Platelet Count 187 K/mm3 (150-450); RBC Distribution Width SD 47.3 fl (35.1-43.9); White Blood Count 6.1 K/mm3 (4.4-11.0)
[2021-11-22 09:57] LABS: International Normalized Ratio 2.3; Prothrombin Time (Protime)PT. 24.9 SECONDS (11.7-14.9)
[2021-11-22 10:10] LABS: BNP,B-Type NATRIURETIC PEPTIDE 1222.5 pg/mL (0-100)
[2021-11-22 10:23] LABS: Anion Gap 10 (5-15); BUN 32 mg/dL (7-18); BUN/Creat Ratio 25.4 RATIO (10-20); Calcium,Total 10.2 mg/dL (8.5-10.1); Chloride 109 mmol/L (98-107); Creatinine, Serum 1.26 mg/dL (0.55-1.02); EST Glomerular Filtration Rate 45 mL/min (>60); Est Glom Filt Rate - Afr Amer 54 mL/min (>60); Estimated Creatinine Clearance 44.66 ml/min; Glucose 113 mg/dL (74-106); Potassium 3.5 mmol/L (3.5-5.1); Sodium Level 141 mmol/L (136-145); Troponin-I HS 16 pg/mL (3.0-54.0)
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
[2021-11-22] MEDS: Furosemide 40 MG/4 ML Vial IV (11:07)
[2021-11-22 11:13] VITALS: BP 174/88; PULSE 69; RESP 17; O2SAT 96
== END 2021-11-22 11:18 | disposition home or self-care (01) ==
PROVIDERS: Emergency Provider Emergency Medicine; PCP Internal Medicine; Visit Provider Emergency Medicine
DX: R06.02 Shortness of breath (principal); I11.0 Hypertensive heart disease with heart failure; I50.22 Chronic systolic (congestive) heart failure; I48.0 Paroxysmal atrial fibrillation; I25.10 Atherosclerotic heart disease of native coronary artery without angina pectoris; E78.5 Hyperlipidemia, unspecified; Z79.01 Long term (current) use of anticoagulants; Z79.899 Other long term (current) drug therapy
CPT/HCPCS: 71045; 80048; 83880; 84484; 85025; 85610; 93005; 94640; 96374; 99283; A4216; J1940

== ENCOUNTER 2021-12-13 09:26 | Emergency (ER) | payer MEDICARE, SELFPAY ==
[2021-12-13 09:27] VITALS: PULSE 64; RESP 20; TEMP 36.3; O2SAT 94; BMI 35.4
[2021-12-13 09:30] VITALS: BP 184/89; PULSE 64; RESP 16; TEMP 36.3; O2SAT 94
[2021-12-13 09:32] VITALS: BP 184/89; PULSE 64; RESP 16; O2SAT 94
--- NOTE | 2021-12-13 09:54 | EKG12_ITS ---
Test Reason : Blood Pressure : / mmHG Vent. Rate : 066 BPM Atrial Rate : 015 BPM P-R Int : 000 ms QRS Dur : 186 ms QT Int : 522 ms P-R-T Axes : 000 231 105 degrees QTc Int : 547 ms Ventricular-paced rhythm with frequent Premature ventricular complexes Biventricular pacemaker detected Abnormal ECG Confirmed by CHEN HAMMONDS, LILIANE ([id number]), editorial specialist DM TORRES ([id number]) on 12/15/2021 1:01:19 PM Referred By: Confirmed By:LILIANE SIDDIQUI MD
--- NOTE | 2021-12-13 09:54 | CT_ITS ---
STUDY: CT ABDOMEN AND PELVIS WITH CONTRAST REASON FOR EXAM: Female, 66 years old. abdominal pain RADIATION DOSAGE (If Supplied By Facility): CTDIvol = ( 23.83 ) mGy, DLP = ( 1139.45 ) mGycm TECHNIQUE: Transaxial images were obtained from the dome of the diaphragm to the symphysis pubis without oral contrast. IV 75mL Isovue-[id number] was administered. Sagittal and coronal images were reconstructed. Individualized dose optimization techniques were used for this CT. COMPARISON: 02/06/2017 FINDINGS: The visualized lung bases are unremarkable. Cardiomegaly. Normal liver. Diffuse gallbladder wall thickening worrisome for acute or chronic cholecystitis. Clinical correlation and correlation with right upper quadrant ultrasound is recommended. 1.5 cm cyst in the inferior aspect of the spleen. Normal pancreas. Normal bilateral adrenal glands. Normal right kidney. Multiple small left renal cyst. Normal visualized stomach. Normal small intestine. Normal colon. There is non-visualization of the appendix. Normal abdominal aorta. Normal inferior vena cava. Normal retroperitoneum. Normal urinary bladder. Small amount of free fluid in the pelvis. Normal abdominal wall. Mild levoscoliosis of the lumbar spine with degenerative disc disease. CT/Abdomen/Pelvis W IV Cont ONLY IMPRESSION: 1. Possible acute or chronic cholecystitis and clinical correlation and correlation with right upper quadrant ultrasound is recommended. 2. Small amount of free fluid in the pelvis. Electronically Signed: Derrell Easley MD at 11:08 EDT ,
--- NOTE | 2021-12-13 09:54 | RAD_ITS ---
STUDY: X-RAY CHEST REASON FOR EXAM: Female, 66 years old. dyspnea TECHNIQUE: Single AP portable view of the chest. COMPARISON: 11/22/2021 FINDINGS: Left subclavian AICD which is unchanged. Status post median sternotomy. The lungs are clear and expanded. There is no demonstrated pleural abnormality. There is moderate cardiac enlargement. Normal mediastinum and randy. Normal visualized pulmonary arteries. Normal visualized aortic arch and descending thoracic aorta. Normal visualized thoracic spine. Normal visualized ribs, clavicles, and shoulders. There is no demonstrated abnormality of the visualized soft tissue structures of the upper abdomen. RAD/Chest 1 View (Portable) IMPRESSION: No change from 11/22/2021. Electronically Signed: Derrell Easley MD at 10:37 EDT ,
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
[2021-12-13 10:11] LABS: Absolute Lymphocyte Count 1.21 X10^3/uL (0.83-4.51); Absolute Neutrophil Count 3.8 X10^3/uL (2.0-7.7); Basophil# 0.04 X10^3/uL; Basophil% 0.7 % (0-1); Eosinophil# 0.05 X10^3/uL; Eosinophils% 0.9 % (0-5); Hematocrit 35.5 % (37-47); Hemoglobin 11.3 g/dL (12.0-15.0); Lymphocyte # 1.21 X10^3/ul (0.83-4.51); Lymphocyte % 21.5 % (19-41); Mean Corp Hgb Conc 31.8 g/dL (32-36); Mean Corpuscular Hgb 27.5 pg (27.0-32.0); Mean Corpuscular Volume 86.4 fL (81-99); Mean Platelet Vol. 10.5 fl (6.2-12.0); Monocyte# 0.51 X10^3/uL; NRBC Flagged by Analyzer 0 % (0-5); Neutrophil # 3.82 X10^3/uL (2.7-7.7); Neutrophil % 67.7 % (47-70); Platelet Count 148 K/mm3 (150-450); RBC Distribution Width CV 15.3 % (11.6-14.6); RBC Distribution Width SD 48.2 fl (35.1-43.9); Red Blood Count 4.11 M/mm3 (4.2-5.4); White Blood Count 5.6 K/mm3 (4.4-11.0)
[2021-12-13] MEDS: 0.9% Normal Saline 1,000 ML 150 ML IV (10:19)
[2021-12-13 10:23] LABS: ALB/GLOB Ratio 1.1 RATIO (0.9-2.4); AST(SGOT) 25 U/L (15-37); Alanine Aminotransfer ALT/SGPT 30 U/L (13-56); Albumin, Serum 4.1 g/dL (3.2-5.0); Alkaline Phosphatase 113 U/L (45-117); Anion Gap 9 (5-15); BUN 27 mg/dL (7-18); BUN/Creat Ratio 21.1 RATIO (10-20); Calcium,Total 10.5 mg/dL (8.5-10.1); Chloride 106 mmol/L (98-107); Creatinine, Serum 1.28 mg/dL (0.55-1.02); EST Glomerular Filtration Rate 44 mL/min (>60); Est Glom Filt Rate - Afr Amer 53 mL/min (>60); Estimated Creatinine Clearance 36.32 ml/min; Globulin 3.8 g/dL (2.2-4.2); Glucose 107 mg/dL (74-106); Lipase 293 U/L (73-393); Potassium 3.7 mmol/L (3.5-5.1); Protein, Total 7.9 g/dL (6.4-8.2); Sodium Level 139 mmol/L (136-145)
[2021-12-13 10:26] LABS: Bacteria 0 SEEN /hpf (None Seen); Mucous, Urine 0 SEEN /hpf (<or=2+)
[2021-12-13 10:26] LABS: International Normalized Ratio 1.8; Prothrombin Time (Protime)PT. 20.9 SECONDS (11.7-14.9)
[2021-12-13 10:31] LABS: Color, Urine Yellow (Yellow); Glucose, Dipstick Normal (Normal); Ketone-Dipstick Negative (Negative); Leukocyte Esterase-Dipstick 500 /ul (Negative); Nitrite-Dipstick Negative (Negative); Occult Blood-Urine 10 /ul (Negative); Protein-Dipstick 100 mg/dl (Negative); Urine Bilirubin Dipstick Negative (Negative); Urine Clarity Clear (Clear); Urine Urobilinogen Normal (Normal); Urine pH 6.5 (5.0 - 8.0)
[2021-12-13 10:44] LABS: Red Blood Cells-Urine 0-5 SEEN /hpf (0-5); Squamous Epithelial Cells - UA 0-5 SEEN /hpf (5-10); White Blood Cells 5-10 SEEN /hpf (0-5)
--- NOTE | 2021-12-13 11:20 | US_ITS ---
STUDY: ABDOMINAL ULTRASOUND - RIGHT UPPER QUADRANT REASON FOR VISIT: Female, 66 years old diffuse abdominal pain, nausea TECHNIQUE: Ultrasound evaluation of the right upper quadrant was performed with real-time and static carmichael-scale imaging. TECHNICAL QUALITY: Limited. Examination limited by bowel gas. COMPARISON: None. FINDINGS: Liver: The liver measures 17.2 cm. There is normal echogenicity of the liver. The bile ducts are within normal limits. There is hepatic color flow. The direction of portal flow is hepatopetal. There is no demonstrated mass lesion. Gallbladder: Normal distended gallbladder. The gallbladder wall measures 5 mm. There is a negative sonographic Mccarthy''s sign. There is trace pericholecystic fluid. There are no gallstones. Common Bile Duct (C.B.D.): The common bile duct measures 5 mm. Pancreas: Visualized pancreas is sonographically normal Right Kidney: Normal size of the right kidney. The right kidney measures 11.4 x 4.1 x 4.5 cm. Normal renal cortex. There is a 1.6 cm cyst. There is a 5 mm hyperechoic cortical nodule which likely represents a angiomyolipoma. There is no right hydronephrosis. US/Gallbladder IMPRESSION: Gallbladder wall thickening with trace pericholecystic fluid. However, there is no biliary dilatation, there are no gallstones and the clinical specialist notes a negative MCCARTHY sign. Findings are equivocal for cholecystitis, consider HIDA scan for further evaluation. Gallbladder wall thickening is a nonspecific finding, it can be seen with cholecystitis but also with pancreatitis or hepatitis. 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 Also no specific follow-up needed Electronically Signed: Josr Ace MD at 13:23 EDT ,
[2021-12-13 11:26] VITALS: BP 188/98; PULSE 70; RESP 16; O2SAT 95
[2021-12-13 13:24] VITALS: PULSE 68; RESP 17; O2SAT 96
[2021-12-13 13:46] LABS: Troponin-I HS 17 pg/mL (3.0-54.0)
== END 2021-12-13 14:07 | disposition left against medical advice (07) ==
PROVIDERS: Emergency Provider Emergency Medicine; PCP Internal Medicine; Visit Provider Emergency Medicine
DX: R07.9 Chest pain, unspecified (principal); I11.0 Hypertensive heart disease with heart failure; I50.22 Chronic systolic (congestive) heart failure; E78.5 Hyperlipidemia, unspecified; M54.9 Dorsalgia, unspecified; R06.02 Shortness of breath; K80.50 Calculus of bile duct without cholangitis or cholecystitis without obstruction; Z79.899 Other long term (current) drug therapy; Z79.01 Long term (current) use of anticoagulants
CPT/HCPCS: 71045; 74177; 76705; 80053; 81001; 83605; 83690; 84484; 85025; 85610; 87428; 93005; 96360; 96361; 99284; J7030; Q9967; A4216

== ENCOUNTER 2021-12-15 20:23 | Outpatient (CLI) | payer MEDICARE, SELFPAY | END 2021-12-21 13:05 | disposition left against medical advice (07) | PROVIDERS: PCP Internal Medicine; Visit Provider Nurse Practitioner Acute Care | DX: R07.9 Chest pain, unspecified (principal); G47.33 Obstructive sleep apnea (adult) (pediatric); G47.10 Hypersomnia, unspecified | CPT/HCPCS: 78452; 93017; 95810; A9500; A4216; J2785 ==

== ENCOUNTER → 2021-12-15 | Outpatient (CLI) | payer MEDICARE, SELFPAY ==
--- NOTE | 2021-12-15 08:06 | STRESSREP ---
Stress Test Report Date: 12-15-2021 Procedure: Pharmacologic stress nuclear imaging study Indications: Chest pain; atrial fibrillation; cardiomyopathy; CHF; status post mitral valve replacement; status post AV node ablation; status post biventricular ICD Consent: Per the patient Procedure: The patient underwent pharmacologic (Regadenoson 0.4mg ) evaluation with a peak heart rate of 88 beats per minute (57%predicted maximal heart rate) and a peak blood pressure of 138/94 mmHg. The baseline ECG demonstrated electronic ventricular paced rhythm. The peak pharmacologic ECG demonstrated an electronic ventricular paced rhythm. There was a rare PVC during infusion and recovery. There was no complaint of chest discomfort during pharmacologic infusion or recovery. The examination was discontinued secondary to completion of protocol. Impression: 1. Pharmacologic (Regadenoson) evaluation 2. Peak pharmacologic ECG with an electronic ventricular paced rhythm. 3. There were no cardiac dysrhythmias pretest, during pharmacologic infusion, or recovery. 4. Nuclear images pending Myocardial perfusion imaging study: Technique: The patient was injected with 14.6 millicuries of technetium 99m Cardiolite and subsequently rest SPECT Cardiolite nuclear imaging was obtained in the horizontal long, vertical long, and short axis views. The patient underwent pharmacologic (Regadenoson) evaluation with a peak heart rate of 88 beats per minute (57% percent predicted maximal heart rate) and a peak blood pressure of 138/94 mmHg. The patient was injected with 44.1 millicuries of technetium 99m Cardiolite and subsequently stress SPECT Cardiolite nuclear imaging was obtained in the horizontal long, vertical long, and short axis views. A gated Cardiolite study at peak stress was obtained. Interpretation: Rest and stress SPECT Cardiolite nuclear imaging status post realignment, normalization, and attenuation correction demonstrate the appearance of diminished absence of myocardial perfusion/tracer uptake in portions of the basal inferior/inferolateral segments extending towards the mid/distal inferolateral segments without significant change between rest and stress. There is diminished end-systolic thickening and brightening. The gated Cardiolite study demonstrates diminished myocardial thickening and inward wall motion. The reported LVEF is 28%. Impression: 1. Rest and stress SPECT Cardiolite nuclear imaging demonstrate myocardial perfusion changes compatible with an area of previous myocardial injury/infarction involving portions of the inferolateral segments with no myocardial perfusion changes considered diagnostic for associated stress-induced myocardial ischemia. 2. The gated Cardiolite study reports an LVEF of 28%. Of note: Based upon the SPECT images obtained left ventricular dilatation cannot be excluded. This note was generated with [id number] software. It may contain incorrect words, spelling, and punctuation that were not noted in checking the note before signing.
== END | disposition home or self-care (01) ==
LOC: CVS 06:20
PROVIDERS: PCP Internal Medicine; Referring Provider Physician Assistant Medical; Visit Provider Physician Assistant Medical
DX: R07.9 Chest pain, unspecified (principal)
CPT/HCPCS: 78452; 93017; A9500; A4216; J2785

== ENCOUNTER → 2022-01-06 | Outpatient (CLI) | payer MEDICARE, SELFPAY ==
--- NOTE | 2022-01-06 16:15 | CT_ITS ---
STUDY: CT BRAIN WITHOUT CONTRAST REASON FOR EXAM: Female, 66 years old. DIZZINESS RADIATION DOSAGE (If Supplied By Facility): CTDIvol = ( 44.99 ) mGy, DLP = ( 914.22 ) mGycm TECHNIQUE: Transaxial CT imaging of the brain was performed without administration of intravenous contrast material. Individualized dose optimization techniques were used for this CT. COMPARISON: No relevant priors. FINDINGS: Normal soft tissue structures. Normal calvarium. There is mild cerebral atrophy with widening of the extra-axial spaces and ventricular dilatation. There are areas of decreased attenuation within the white matter tracts of the supratentorial brain, consistent with microvascular disease changes. There is no intracranial hemorrhage. There are no findings of an acute ischemic infarction. Normal visualized paranasal sinuses. CT/Brain/Head without Contrast IMPRESSION: No acute findings. Chronic involutional changes of the brain. Electronically Signed: Jessica Odell MD at 16:37 EDT Reading Location ID and State: [id number] / Tel , Service support ,
== END | disposition home or self-care (01) ==
LOC: CT 16:12
PROVIDERS: PCP Internal Medicine; Referring Provider Internal Medicine; Visit Provider Internal Medicine
DX: R51.9 Headache, unspecified (principal)
CPT/HCPCS: 70450

== ENCOUNTER → 2022-01-20 | Outpatient (CLI) | payer MEDICARE, SELFPAY ==
[2022-01-20 16:26] LABS: Hematocrit 38.4 % (37-47); Hemoglobin 12.5 g/dL (12.0-15.0); Mean Corp Hgb Conc 32.6 g/dL (32-36); Mean Corpuscular Hgb 27.9 pg (27.0-32.0); Mean Corpuscular Volume 85.7 fL (81-99); Mean Platelet Vol. 10.2 fl (6.2-12.0); Platelet Count 231 K/mm3 (150-450); RBC Distribution Width SD 50.4 fl (35.1-43.9); Red Blood Count 4.48 M/mm3 (4.2-5.4); White Blood Count 6.2 K/mm3 (4.4-11.0)
[2022-01-20 16:56] LABS: Anion Gap 6 (5-15); BUN 30 mg/dL (7-18); BUN/Creat Ratio 22.1 RATIO (10-20); Calcium,Total 10.4 mg/dL (8.5-10.1); Chloride 101 mmol/L (98-107); Creatinine, Serum 1.36 mg/dL (0.55-1.02); EST Glomerular Filtration Rate 41 mL/min (>60); Est Glom Filt Rate - Afr Amer 50 mL/min (>60); Glucose 107 mg/dL (74-106); Potassium 4.4 mmol/L (3.5-5.1); Sodium Level 138 mmol/L (136-145)
== END | disposition home or self-care (01) ==
LOC: LAB 15:33
PROVIDERS: PCP Internal Medicine; Visit Provider Internal Medicine Cardiovascular Disease
DX: R06.02 Shortness of breath (principal); I50.22 Chronic systolic (congestive) heart failure; I42.0 Dilated cardiomyopathy; Z79.899 Other long term (current) drug therapy; Z95.2 Presence of prosthetic heart valve
CPT/HCPCS: 36415; 80048; 85027

== ENCOUNTER → 2023-01-20 | Outpatient (CLI) | payer MEDICARE, SELFPAY ==
[2023-01-20 11:58] LABS: Erythrocyte Sedimentation Rate 5 mm/hr (0-30)
[2023-01-20 12:00] LABS: Absolute Lymphocyte Count 1.51 X10^3/uL (0.83-4.51); Absolute Neutrophil Count 2.8 X10^3/uL (2.0-7.7); Basophil# 0.06 X10^3/uL; Basophil% 1.2 % (0-1); Eosinophil# 0.23 X10^3/uL; Eosinophils% 4.6 % (0-5); Hematocrit 34.5 % (37-47); Hemoglobin 10.6 g/dL (12.0-15.0); Lymphocyte # 1.51 X10^3/ul (0.83-4.51); Mean Corp Hgb Conc 30.7 g/dL (32-36); Mean Corpuscular Hgb 27.7 pg (27.0-32.0); Mean Corpuscular Volume 90.1 fL (81-99); Mean Platelet Vol. 10.2 fl (6.2-12.0); Monocyte# 0.39 X10^3/uL; Monocyte% 7.8 % (0-10); NRBC Flagged by Analyzer 0 % (0-5); Neutrophil # 2.82 X10^3/uL (2.7-7.7); Platelet Count 193 K/mm3 (150-450); RBC Distribution Width CV 14.4 % (11.6-14.6); RBC Distribution Width SD 47.5 fl (35.1-43.9); Red Blood Count 3.83 M/mm3 (4.2-5.4)
[2023-01-20 12:32] LABS: Vitamin B12 458 pg/mL (211-911); Vitamin D,25 Hydroxy 52.4 ng/mL
[2023-01-20 12:33] LABS: AST(SGOT) 22 U/L (15-37); Alanine Aminotransfer ALT/SGPT 33 U/L (13-56); Albumin, Serum 4.3 g/dL (3.2-5.0); Alkaline Phosphatase 97 U/L (45-117); Anion Gap 5 (5-15); BUN 26 mg/dL (7-18); BUN/Creat Ratio 18.3 RATIO (10-20); CRP 7.04 mg/L (0.0-3.0); Calcium,Total 10.1 mg/dL (8.5-10.1); Chloride 105 mmol/L (98-107); Cholesterol 235 mg/dL (200); Creatinine, Serum 1.42 mg/dL (0.55-1.02); EST Glomerular Filtration Rate 39 mL/min (>60); Est Glom Filt Rate - Afr Amer 47 mL/min (>60); Globulin 4.3 g/dL (2.2-4.2); Glucose 88 mg/dL (74-106); High Density Lipoprotein 34 mg/dL; Microalbumin,Random Urine 50.9 mg/L (NO RANGE EST.); Microalbumin:Creatinine Ratio 72.8 mg/g CRE (<30 mg/g CRE); Protein, Total 8.6 g/dL (6.4-8.2); Sodium Level 140 mmol/L (136-145); Thyroid Stim Hormone (TSH) 3.52 uIU/mL (0.358-3.74); Triglycerides 270 mg/dL; Very Low Density Lipoprotein 54 mg/dL (5-40)
[2023-01-20 13:03] LABS: Hemoglobin A1c 5.6 % (3.8-5.6)
== END | disposition home or self-care (01) ==
PROVIDERS: PCP Internal Medicine; Referring Provider Internal Medicine; Visit Provider Internal Medicine
DX: E11.9 Type 2 diabetes mellitus without complications (principal); E78.5 Hyperlipidemia, unspecified; E55.9 Vitamin D deficiency, unspecified; R53.83 Other fatigue
CPT/HCPCS: 36415; 80053; 80061; 82043; 82306; 82570; 82607; 83036; 84443; 85025; 85652; 86140

== ENCOUNTER → 2023-03-22 | Outpatient (CLI) | payer MEDICARE, SELFPAY ==
[2023-03-22 12:44] LABS: Hepatitis C Antibody Non-Reactive (Nonreactive)
== END | disposition home or self-care (01) ==
LOC: LAB 10:36
PROVIDERS: PCP Internal Medicine; Referring Provider Physician Assistant Medical; Visit Provider Physician Assistant Medical
DX: L43.8 Other lichen planus (principal); R20.8 Other disturbances of skin sensation; R58 Hemorrhage, not elsewhere classified; L29.8 Other pruritus
CPT/HCPCS: 36415; 86803

== ENCOUNTER → 2023-03-31 | Outpatient (CLI) | payer MEDICARE, SELFPAY ==
--- NOTE | 2023-03-31 07:05 | ECHOCS_ITS ---
Reason For Study: CHEST PAIN, RICHARD Procedure This was a 2D Doppler, Color Flow transthoracic echocardiogram. The study was technically limited. Due to poor accoustic windows. Contrast injection was performed. Exam performed in department. Left Ventricle Normal LV size. The estimated ejection fraction is 45 %. There is mild global hypokinesis of the left ventricle. Right Ventricle Mildly dilated right ventricle. ICD or pacer leads identified within the right ventricle. Mild to moderate global right ventricular systolic dysfunction. Mitral Valve Stable appearing mechanical mitral valve apparatus. Tricuspid Valve Normal tricuspid valve. Mild to moderate (1-2+) tricuspid valve insufficiency. Pulmonary artery systolic pressure is 46 mmHg. Mild pulmonary hypertension. Aortic Valve Trisinus/trileaflet aortic valve. Pulmonic Valve Normal pulmonic valve. Great Vessels Normal aortic root. The pulmonary is not well visualized. Normal inferior vena cava. Pericardium/Pleural No pericardial effusion. Medication 22 gauge I.V. with prn adaptor inserted into right arm. Diluted definity 3.0ml given slow IV push to enhance endocardial definition. MMode/2D Measurements & Calculations LVIDd: 7.5 cm IVSd: 1.2 cm LVOT diam: 2.5 cm LVIDs: 5.9 cm LVPWd: 1.1 cm LVOT area: 4.8 cm2 RVDd: 4.5 cm FS: 22.3 % Ao root diam: 3.0 cm LVAd ap4: 25.3 cm2 LVAd ap2: 21.6 cm2 LVLd ap4: 7.1 cm LVLd ap2: 7.3 cm EDV(MOD-sp4): 74.6 ml EDV(MOD-sp2): 53.5 ml EDV(sp4-el): 76.7 ml EDV(sp2-el): 54.1 ml LVAs ap4: 16.8 cm2 LVAs ap2: 13.9 cm2 LVLs ap4: 6.3 cm LVLs ap2: 6.1 cm ESV(MOD-sp4): 37.7 ml ESV(MOD-sp2): 27.4 ml ESV(sp4-el): 37.8 ml ESV(sp2-el): 26.8 ml EF(MOD-sp4): 49.4 % EF(MOD-sp2): 48.8 % EF(sp4-el): 50.7 % SV(MOD-sp4): 36.8 ml SV(MOD-sp2): 26.1 ml SV(sp4-el): 38.9 ml LA dimension(2D): 4.9 cm TAPSE: 1.8 cm Doppler Measurements & Calculations MV E max chun: 179.2 cm/sec Lat Peak E' Chun: 4.4 cm/sec Med Peak E' Chun: 7.4 cm/sec E/E' lat: 41.2 E/E' med: 24.2 MV V2 max: 198.2 cm/sec Ao V2 max: 112.3 cm/sec LV V1 max: 80.7 cm/sec MV max P.7 mmHg Ao max P.1 mmHg LV V1 max P.6 mmHg MV V2 mean: 133.6 cm/sec Ao V2 mean: 81.6 cm/sec LV V1 mean P.3 mmHg MV mean P.8 mmHg Ao mean P.0 mmHg LV V1 mean: 53.7 cm/sec MV V2 VTI: 73.4 cm Ao V2 VTI: 26.5 cm LV V1 VTI: 18.6 cm AV (velocity ratio): 0.70 MVA(VTI): 1.2 cm2 ARABELLA(I,D): 3.4 cm2 ARABELLA(V,D): 3.5 cm2 SV(LVOT): 89.9 ml PA V2 max: 86.7 cm/sec PA V2 mean: 61.4 cm/sec PI dec slope: 137.9 cm/sec2 TR max chun: 323.3 cm/sec TR max P.8 mmHg ECHO/Echo Complete W/ Contrast Interpretation Summary Normal LV size. The estimated ejection fraction is 45 %. There is mild global hypokinesis of the left ventricle. Mild to moderate global right ventricular systolic dysfunction. Mild pulmonary hypertension. Pulmonary artery systolic pressure is 46 mmHg. Contrast injection was performed. Ordering Physician: Yeny Thompson Referring Physician: Erin Elizabeth Performed By: Yamile Pierre, GALILEA, RVT
--- NOTE | 2023-03-31 18:23 | STRESSREP_ITS ---
Stress Test Report Pharmacologic myocardial perfusion stress test. 68-year-old lady with a history of chest pain dyspnea on exertion and atrial fibrillation. Resting EKG demonstrates atrial fibrillation with ventricular pacing and a rate of 64 bpm. Resting blood pressure is 132/74 mmHg. 0.4 mg of regadenoson was infused per usual protocol followed by rapid intravenous saline flush injection. Continuous EKG monitoring was performed. The maximum heart rate was 77 bpm which was 51% of max impacted heart rate the maximum workload was 1 metabolic equivalent. At rest there were no ST or T wave changes noted to suggest ischemia and at peak infusion nonspecific ST changes were noted which did not meet the criteria for ischemia. No clinical angina is noted. The final blood pressure was 118/64 mmHg. Myocardial perfusion protocol. 11.8 mCi of technetium 99m sestamibi was injected at rest. 0.4 mg of regadenoson was infused per usual protocol. At peak infusion 34.3 mCi of technetium 99m sestamibi was injected stress images were obtained stress and rest images were reconstructed and compared in the short axis vertical long and horizontal long axis. Gated images were also obtained. Perfusion SPECT analysis: Review of the stress images demonstrate normal uptake of tracer noted in all areas of the myocardium except for the basal and mid inferior wall and extending to the inferolateral wall with an extensive perfusion defect. The resting images similar demonstrated normal uptake of tracer noted in all areas of the myocardium except for the dumont as outlined above. The above is likely suggestive of a previous extensive inferior and inferolateral infarct and or nonischemic cardiomyopathy. No areas of reversibility are noted suggest is chemia. Gated SPECT analysis: The gated ejection fraction is 45%. Conclusion: Myocardial pharmacologic perfusion stress test with evidence of extensive inferior inferolateral perfusion defect No ischemia noted Mildly reduced ejection fraction
== END | disposition home or self-care (01) ==
LOC: CVS 07:03
PROVIDERS: PCP Internal Medicine; Referring Provider Physician Assistant Medical; Visit Provider Physician Assistant Medical
DX: R06.00 Dyspnea, unspecified (principal); I42.8 Other cardiomyopathies; R07.9 Chest pain, unspecified
CPT/HCPCS: 78452; 93017; 93306; A9500; Q9957; A4216; C8929; J2785

== ENCOUNTER → 2023-05-23 | Outpatient (CLI) | payer MEDICARE, SELFPAY ==
[2023-05-23 13:32] LABS: Hemoglobin A1c 6.1 % (3.8-5.6)
== END | disposition home or self-care (01) ==
PROVIDERS: PCP Internal Medicine; Referring Provider Internal Medicine; Visit Provider Internal Medicine
DX: E11.9 Type 2 diabetes mellitus without complications (principal)
CPT/HCPCS: 36415; 83036

== ENCOUNTER → 2023-06-30 | Outpatient (CLI) | payer MEDICARE, SELFPAY ==
--- NOTE | 2023-06-30 13:19 | BI_ITS ---
MAMMOGRAPHY - BILATERAL SCREENING REASON FOR EXAM: Female, 68 years old. Routine annual screening examination. PERTINENT HISTORY: Mother with breast cancer. TECHNIQUE: Digital bilateral breast carlos (3D mammographic acquisition) in the CC and MLO projections. 2-D mediolateral oblique (MLO) and craniocaudad (CC) views of both breasts were obtained. CAD: Full Field Digital Mammography with Computer Added Detection was performed. COMPARISON: Comparison is made with prior study dated April 09, 2019 and March 09, 2017. FINDINGS: Breast Composition: The breasts are heterogeneously dense, which may obscure small masses. There are no dominant masses or suspicious calcifications. A battery pack of a pacemaker is seen in the left axilla. No other significant abnormalities are identified. There has been no significant change since the prior study. BI/SCRN MAMM (CAD)W/CARLOS BILAT IMPRESSION: Stable bilateral screening mammogram. Yearly follow-up mammogram recommended. (A) ASSESSMENT CATEGORY: BIRADS Category 2: Benign. A letter regarding these results will be sent to the patient by the facility within 30 days. Approximately 10% of breast cancers are not detected by mammography. A normal mammogram should not delay biopsy of a clinically suspicious abnormality. [id number] Electronically Signed: Krishan Guzman MD at 14:16 EDT ,
--- NOTE | 2023-06-30 13:36 | BD_ITS ---
STUDY: DUAL ENERGY X-RAY ABSORPTIOMETRY / DXA REASON FOR EXAM: Female, 68 years old. [id number] TECHNIQUE: Bone Mineral Density (BMD) measurements of lumbar spine and bilateral hips were obtained. COMPARISON: None. FINDINGS: Lumbar Spine (L1-L4): g/cm2 (1.157) / T-score (1.0) / Z-score (3.1) Findings are suggestive of normal bone density with a low fracture risk. Left Femur Total: g/cm2 (1.076) / T-score (1.1) / Z-score (2.6) Left Femoral Neck: g/cm2 (0.888) / T-score (0.3) / Z-score (2.2) Right Femur Total: g/cm2 (1.004) / T-score (0.5) / Z-score (2.0) Right Femoral Neck: g/cm2 (0.826) / T-score (-0.2) / Z-score (1.6) BD/Dexa Bone Density Study IMPRESSION: The patient is considered normal as outlined below according to World Winston Organization (WHO) criteria with a low fracture risk. Reference Information: The T-score is the number of standard deviations above or below the standard which is normal for young adults at their peak bone mineral density. The World Health Organization (WHO) interprets the T-scores as follows: Above -1 Normal bone density Between -1 and -2.5 Osteopenia Equal to / or below -2.5 Osteoporosis As a practical clinical guideline, osteopenia may be graded as follows: Mild -1 through -1.5 Moderate -1.6 through -2.0 Severe -2.1 through -2.4 The Z-score is the number of standard deviations above or below age-matched controls. A Z-score of less than -1.5 would be considered abnormal. References: 1. NIH Osteoporosis and Related Bone Diseases www osteo.org 2. International Society for Clinical Densitometry www iscd.org 3. National Osteoporosis Foundation www nof.org Electronically Signed: Krishan Guzman MD at 12:28 EDT ,
== END | disposition home or self-care (01) ==
LOC: OPBD 13:18
PROVIDERS: PCP Internal Medicine; Referring Provider Internal Medicine; Visit Provider Internal Medicine
DX: Z12.31 Encounter for screening mammogram for malignant neoplasm of breast (principal); Z78.0 Asymptomatic menopausal state
CPT/HCPCS: 77063; 77067; 77080

== ENCOUNTER → 2023-09-15 | Outpatient (CLI) | payer MEDICARE, SELFPAY ==
[2023-09-15 14:39] LABS: Hemoglobin 9.3 g/dL (12.0-15.0); Mean Corp Hgb Conc 32.1 g/dL (32-36); Mean Corpuscular Hgb 28.5 pg (27.0-32.0); Platelet Count 155 K/mm3 (150-450); RBC Distribution Width CV 14.7 % (11.6-14.6); RBC Distribution Width SD 48.2 fl (35.1-43.9); Red Blood Count 3.26 M/mm3 (4.2-5.4); White Blood Count 4.6 K/mm3 (4.4-11.0)
[2023-09-15 15:20] LABS: ALB/GLOB Ratio 1.1 RATIO (0.9-2.4); AST(SGOT) 19 U/L (15-37); Alanine Aminotransfer ALT/SGPT 33 U/L (13-56); Albumin, Serum 4.1 g/dL (3.2-5.0); Alkaline Phosphatase 78 U/L (45-117); Anion Gap 4 (5-15); BUN 25 mg/dL (7-18); BUN/Creat Ratio 15.1 RATIO (10-20); Calcium,Total 10.3 mg/dL (8.5-10.1); Chloride 110 mmol/L (98-107); Creatinine, Serum 1.66 mg/dL (0.55-1.02); EST Glomerular Filtration Rate 32 mL/min (>60); Est Glom Filt Rate - Afr Amer 39 mL/min (>60); Globulin 3.7 g/dL (2.2-4.2); Glucose 96 mg/dL (74-106); Potassium 4.3 mmol/L (3.5-5.1); Protein, Total 7.8 g/dL (6.4-8.2); Sodium Level 141 mmol/L (136-145)
== END | disposition home or self-care (01) ==
LOC: LAB 13:40
PROVIDERS: PCP Internal Medicine; Referring Provider Internal Medicine Cardiovascular Disease; Visit Provider Internal Medicine Cardiovascular Disease
DX: Z79.899 Other long term (current) drug therapy (principal); I42.9 Cardiomyopathy, unspecified
CPT/HCPCS: 36415; 80053; 85027

== ENCOUNTER → 2023-10-05 | Outpatient (CLI) | payer MEDICARE, SELFPAY ==
[2023-10-05 15:45] LABS: International Normalized Ratio 1.4; Prothrombin Time (Protime)PT. 17.5 SECONDS (11.7-14.9)
== END | disposition home or self-care (01) ==
LOC: LAB 13:56
PROVIDERS: PCP Internal Medicine; Referring Provider Internal Medicine Cardiovascular Disease; Visit Provider Internal Medicine Cardiovascular Disease
DX: I48.0 Paroxysmal atrial fibrillation (principal); Z79.01 Long term (current) use of anticoagulants
CPT/HCPCS: 36415; 85610

== ENCOUNTER → 2024-02-07 | Outpatient (CLI) | payer MEDICARE, SELFPAY ==
[2024-02-07 10:14] LABS: International Normalized Ratio 1.8; Prothrombin Time (Protime)PT. 20.4 SECONDS (11.7-14.9)
== END | disposition home or self-care (01) ==
LOC: LAB 09:04
PROVIDERS: PCP Internal Medicine; Referring Provider Internal Medicine Cardiovascular Disease; Visit Provider Internal Medicine Cardiovascular Disease
DX: Z79.01 Long term (current) use of anticoagulants (principal); I48.0 Paroxysmal atrial fibrillation
CPT/HCPCS: 36415; 85610

== ENCOUNTER 2024-04-18 11:10 | Outpatient (RCR) | payer MEDICARE, SELFPAY ==
[2024-04-09 15:57] LABS: Prothrombin Time (Protime)PT. 71.2 SECONDS (11.7-14.9)
[2024-04-09 16:06] LABS: International Normalized Ratio 8.4
== END 2024-04-18 18:00 | disposition home or self-care (01) ==
LOC: LAB 11:10
PROVIDERS: PCP Internal Medicine; Visit Provider Physician Assistant Medical
DX: Z79.01 Long term (current) use of anticoagulants (principal); Z95.2 Presence of prosthetic heart valve; I48.0 Paroxysmal atrial fibrillation
CPT/HCPCS: 36415; 85610

== ENCOUNTER 2024-05-11 13:48 | Emergency (ER) | payer MEDICARE, SELFPAY ==
[2024-05-11 13:49] VITALS: BP 125/73; PULSE 60; RESP 17; TEMP 36.3; O2SAT 96; BMI 25.1
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
--- NOTE | 2024-05-11 14:11 | CT_ITS ---
EXAM: BRAIN/HEAD WITHOUT CONTRAST CLINICAL HISTORY: Fall due to a syncopal episode. Patient is on Coumadin. COMPARISON: Comparison is made with prior examination dated January 06, 2022. TECHNIQUE: Multiple axial tomographic images were obtained without intravenous contrast administration. Coronal and sagittal reconstruction was obtained as well. FINDINGS: Mild degree of cerebral atrophy in keeping with the patient's age. Stable bilateral decreased attenuation in the periventricular white matter distribution in keeping with the chronic small-vessel disease. Focal calcification is seen deep in the left frontal lobe adjacent to the left lateral ventricle. This may represent a granuloma. Atherosclerotic calcification of the cavernous portions of the internal carotid arteries bilaterally. CT/Brain/Head without Contrast IMPRESSION: Cerebral atrophy. No acute abnormality is seen. Reading Location: [place] [id number]
--- NOTE | 2024-05-11 14:11 | CT_ITS ---
PROCEDURE: CT CERVICAL SPINE WITHOUT CONTRAST REASON FOR EXAM: TRAUMA. SYNCOPE. PATIENT FELL. TECHNIQUE: Contiguous axial scans of 2.50 mm slice thicknesses. Sagittal and coronal reconstruction images were obtained. One or more dose reduction techniques were used (e.g., automated exposure control, adjustment of mA and/or kv according to patient size, use of iterative reconstruction technique). COMPARISON: PLAIN FILMS DATED 07/01/2017 NOT AVAILABLE AT THE PRESENT TIME. FINDINGS: C1-C2: Mild degenerative changes. Alignment: Normal Vertebrae: No acute fracture Discs: Moderate narrowing of the C5-6 interspace. Facets: Mild facet arthropathy, multilevel on the right. Foramina: No foraminal narrowing. Soft Tissues: No large prevertebral hematoma. Other osseous: Median sternotomy wires. CT/Spine Cervical without Contras IMPRESSION: 1. No acute traumatic abnormalities involving the cervical spine. 2. Mild spondylosis. 3. Mild degenerative disc disease. Reading Location: [facility]
--- NOTE | 2024-05-11 14:20 | EKG12_ITS ---
Test Reason : Blood Pressure : */* mmHG Vent. Rate : 60 BPM Atrial Rate : 93 BPM P-R Int : * ms QRS Dur : 206 ms QT Int : 568 ms P-R-T Axes : * 250 95 degrees QTcB Int : 568 ms Ventricular-paced rhythm Abnormal ECG Confirmed by Andrzej Haider ([id number]), tape editor MATTHEW IVEY ([id number]) on 05/14/2024 9:54:45 AM Referred By: Confirmed By: Andrzej Haider
[2024-05-11 14:27] LABS: Absolute Lymphocyte Count 1.39 X10^3/uL (0.83-4.51); Basophil# 0.04 X10^3/uL; Basophil% 0.8 % (0-1); Eosinophil# 0.18 X10^3/uL; Eosinophils% 3.5 % (0-5); Hematocrit 34.1 % (37-47); Lymphocyte # 1.39 X10^3/ul (0.83-4.51); Lymphocyte % 27.3 % (19-41); Mean Corp Hgb Conc 32.3 g/dL (32-36); Mean Corpuscular Hgb 27.7 pg (27.0-32.0); Mean Corpuscular Volume 85.9 fL (81-99); Mean Platelet Vol. 9.7 fl (6.2-12.0); Monocyte# 0.48 X10^3/uL; Monocyte% 9.4 % (0-10); NRBC Flagged by Analyzer 0 % (0-5); Neutrophil # 2.99 X10^3/uL (2.7-7.7); Neutrophil % 58.8 % (47-70); Platelet Count 204 K/mm3 (150-450); RBC Distribution Width CV 15.2 % (11.6-14.6); Red Blood Count 3.97 M/mm3 (4.2-5.4); White Blood Count 5.1 K/mm3 (4.4-11.0)
[2024-05-11 14:36] LABS: International Normalized Ratio 2.8
--- NOTE | 2024-05-11 14:38 | RAD_ITS ---
PROCEDURE: CHEST 1 VIEW (PORTABLE) REASON FOR EXAM: Patient fell. Complains of dizziness. TECHNIQUE: Frontal view of the chest. COMPARISON: 12/13/2021. FINDINGS: Lungs are clear of pneumonia and congestion. No pleural effusions, thickening, or pneumothorax. Marked cardiomegaly in a biventricular configuration. Atherosclerotic and tortuous aorta. No hilar masses. Median sternotomy wires. Cardiac pacer generator and leads. Cardiac monitoring leads overlie the chest wall. RAD/Chest 1 View (Portable) IMPRESSION: CARDIOMEGALY. NO ACUTE FINDINGS. Reading Location: [facility]
[2024-05-11 14:42] LABS: Anion Gap 7 (5-15); BUN 40 mg/dL (7-18); BUN/Creat Ratio 16.7 RATIO (10-20); Calcium,Total 10.4 mg/dL (8.5-10.1); Chloride 105 mmol/L (98-107); EST Glomerular Filtration Rate 21 mL/min (>60); Est Glom Filt Rate - Afr Amer 26 mL/min (>60); Estimated Creatinine Clearance 22.47 ml/min; Glucose 125 mg/dL (74-106); Potassium 4.7 mmol/L (3.5-5.1); Sodium Level 137 mmol/L (136-145); Troponin-I HS 10 pg/mL (3.0-54.0)
[2024-05-11 15:09] VITALS: BP 118/66; PULSE 59; RESP 16; O2SAT 99
[2024-05-11 15:55] VITALS: BP 129/70; BP 140/82; BP 163/127; PULSE 60; PULSE 84
== END 2024-05-11 16:12 | disposition home or self-care (01) ==
PROVIDERS: Emergency Provider Surgery; PCP Internal Medicine; Visit Provider Surgery
DX: S09.90XA Unspecified injury of head, initial encounter (principal); I11.0 Hypertensive heart disease with heart failure; I50.22 Chronic systolic (congestive) heart failure; I48.91 Unspecified atrial fibrillation; E78.5 Hyperlipidemia, unspecified; N28.9 Disorder of kidney and ureter, unspecified; Z86.73 Personal history of transient ischemic attack (TIA), and cerebral infarction without residual deficits; Z79.01 Long term (current) use of anticoagulants; Z95.2 Presence of prosthetic heart valve; W19.XXXA Unspecified fall, initial encounter
CPT/HCPCS: 70450; 71045; 72125; 80048; 84484; 85025; 85610; 93005; 99284; A4216

== ENCOUNTER 2024-05-17 08:06 | Outpatient (RCR) | payer MEDICARE, SELFPAY ==
[2024-04-25 11:00] LABS: International Normalized Ratio 2.9
[2024-05-03 12:51] LABS: International Normalized Ratio 2.5; Prothrombin Time (Protime)PT. 27.6 SECONDS (11.7-14.9)
[2024-05-17 09:07] LABS: International Normalized Ratio 2.5; Prothrombin Time (Protime)PT. 27.8 SECONDS (11.7-14.9)
== END 2024-05-18 18:00 | disposition home or self-care (01) ==
LOC: LAB 08:06
PROVIDERS: PCP Internal Medicine; Referring Provider Physician Assistant Medical; Visit Provider Physician Assistant Medical
DX: Z79.01 Long term (current) use of anticoagulants (principal); Z95.2 Presence of prosthetic heart valve; I48.0 Paroxysmal atrial fibrillation
CPT/HCPCS: 36415; 85610

== ENCOUNTER 2024-06-13 10:42 | Outpatient (RCR) | payer MEDICARE, SELFPAY ==
[2024-05-29 09:57] LABS: Prothrombin Time (Protime)PT. 23.4 SECONDS (11.7-14.9)
[2024-06-08 12:35] LABS: International Normalized Ratio 4.7
[2024-06-13 11:40] LABS: International Normalized Ratio 2.9; Prothrombin Time (Protime)PT. 30.9 SECONDS (11.7-14.9)
== END 2024-06-13 18:00 | disposition home or self-care (01) ==
LOC: LAB 10:42
PROVIDERS: PCP Internal Medicine; Referring Provider Physician Assistant Medical; Visit Provider Physician Assistant Medical
DX: I48.0 Paroxysmal atrial fibrillation (principal); Z95.2 Presence of prosthetic heart valve; Z79.01 Long term (current) use of anticoagulants
CPT/HCPCS: 36415; 85610

== ENCOUNTER → 2024-06-28 | Outpatient (CLI) | payer MEDICARE, SELFPAY ==
[2024-06-28 11:45] LABS: Absolute Lymphocyte Count 1.33 X10^3/uL (0.83-4.51); Basophil# 0.04 X10^3/uL; Basophil% 0.8 % (0-1); Eosinophil# 0.16 X10^3/uL; Eosinophils% 3.3 % (0-5); Hematocrit 31.3 % (37-47); Hemoglobin 10.1 g/dL (12.0-15.0); Lymphocyte # 1.33 X10^3/ul (0.83-4.51); Lymphocyte % 27.3 % (19-41); Mean Corp Hgb Conc 32.3 g/dL (32-36); Mean Corpuscular Hgb 28.7 pg (27.0-32.0); Mean Corpuscular Volume 88.9 fL (81-99); Monocyte# 0.37 X10^3/uL; Monocyte% 7.6 % (0-10); NRBC Flagged by Analyzer 0 % (0-5); Neutrophil # 2.97 X10^3/uL (2.7-7.7); Neutrophil % 60.8 % (47-70); Platelet Count 181 K/mm3 (150-450); RBC Distribution Width CV 15.8 % (11.6-14.6); RBC Distribution Width SD 51.3 fl (35.1-43.9); Red Blood Count 3.52 M/mm3 (4.2-5.4); White Blood Count 4.9 K/mm3 (4.4-11.0)
[2024-06-28 11:53] LABS: Hemoglobin A1c 5.9 % (<=5.6)
[2024-06-28 11:56] LABS: Microalbumin,Random Urine 83.6 mg/L (NO RANGE EST.); Microalbumin:Creatinine Ratio 643.1 mg/g CRE
[2024-06-28 12:35] LABS: ALB/GLOB Ratio 1.4 RATIO (0.9-2.4); AST(SGOT) 26 U/L (<=31); Alanine Aminotransfer ALT/SGPT 23 U/L (<=34); Albumin, Serum 4.6 g/dL (3.4-4.8); Alkaline Phosphatase 96 U/L (35-104); Anion Gap 11 (5-15); BUN 28 mg/dL (4-19); BUN/Creat Ratio 19.2 RATIO (10-20); Calcium,Total 10.3 mg/dL (7.6-11.0); Carbon Dioxide 23.6 mmol/L (21.0-32.0); Chloride 104 mmol/L (98-108); Cholesterol 231 mg/dL (<=200); Creatinine, Serum 1.47 mg/dL (0.70-1.20); EST Glomerular Filtration Rate 38 (>60); Globulin 3.2 g/dL (2.2-4.2); Glucose 91 mg/dL (70-99); High Density Lipoprotein 31 mg/dL; Low Density Lipoprotein Calc. 165 mg/dL; Potassium 4.7 mmol/L (3.3-5.1); Protein, Total 7.8 g/dL (5.9-8.4); Sodium Level 138 mmol/L (133-145); Total Bilirubin 0.53 mg/dL (0.00-1.30); Triglycerides 176 mg/dL; Very Low Density Lipoprotein 35 mg/dL (5-40); cholesterol:hdl ratio screen 7.52
[2024-06-28 12:36] LABS: Vitamin B12 739 pg/mL (180-914); Vitamin D,25 Hydroxy 39.4 ng/mL (30-100)
== END | disposition home or self-care (01) ==
LOC: LAB 10:57
PROVIDERS: PCP Internal Medicine; Referring Provider Internal Medicine; Visit Provider Internal Medicine
DX: E11.9 Type 2 diabetes mellitus without complications (principal); E78.5 Hyperlipidemia, unspecified; E55.9 Vitamin D deficiency, unspecified; R41.3 Other amnesia
CPT/HCPCS: 36415; 80053; 80061; 82043; 82306; 82570; 82607; 83036; 84443; 85025

== ENCOUNTER 2024-07-04 13:11 | Outpatient (RCR) | payer MEDICARE, SELFPAY ==
[2024-06-21 09:59] LABS: International Normalized Ratio 2.2; Prothrombin Time (Protime)PT. 24.9 SECONDS (11.7-14.9)
[2024-07-04 14:34] LABS: International Normalized Ratio 2.6; Prothrombin Time (Protime)PT. 28.3 SECONDS (11.7-14.9)
== END 2024-07-18 18:00 | disposition home or self-care (01) ==
LOC: LAB 13:11
PROVIDERS: PCP Internal Medicine; Referring Provider Physician Assistant Medical; Visit Provider Physician Assistant Medical
DX: Z79.01 Long term (current) use of anticoagulants (principal); Z95.2 Presence of prosthetic heart valve; I48.0 Paroxysmal atrial fibrillation
CPT/HCPCS: 36415; 85610

== ENCOUNTER → 2024-07-06 | Outpatient (CLI) | payer MEDICARE, SELFPAY ==
--- NOTE | 2024-07-06 10:00 | BI_ITS ---
EXAM: SCRN MAMM (CAD)W/CARLOS BILAT 07/06/2024 CLINICAL HISTORY: F, Age 69 y/o , SCREENING TECHNIQUE: Bilateral screening digital breast tomosynthesis with 2D and 3D images. Computer aided detection. COMPARISON: Prior exam(s) dated 06/30/2023, 04/09/2019. FINDINGS: TISSUE DENSITY: The breast tissue is heterogenously dense, which may obscure small masses. The mammogram demonstrates that the patient has dense breasts. Supplemental screening with whole breast ultrasound or MRI may be considered for further evaluation. Bilateral Breast Mammographic Findings: The left axillary/chest cardiac battery pack limits evaluation of the underlying tissue. No significant masses, calcifications or other abnormalities are identified. BI/SCRN MAMM (CAD)W/CARLOS BILAT IMPRESSION: Right Breast: BIRADS 1 NEGATIVE. Left Breast: BIRADS 1 NEGATIVE. OVERALL FINAL ASSESSMENT: BIRADS 1 NEGATIVE. RECOMMENDATION: Routine annual follow-up in 1 Year A letter with findings and recommendations will be mailed to the patient. Reading Location: [id number]
== END | disposition home or self-care (01) ==
PROVIDERS: PCP Internal Medicine; Referring Provider Internal Medicine; Visit Provider Internal Medicine
DX: Z12.31 Encounter for screening mammogram for malignant neoplasm of breast (principal)
CPT/HCPCS: 77063; 77067

== ENCOUNTER 2024-08-08 14:13 | Outpatient (RCR) | payer MEDICARE, SELFPAY ==
[2024-07-26 09:25] LABS: Platelet Count 189 K/mm3 (150-450); RET-HE 32.7 pg (30-35)
[2024-07-26 10:25] LABS: Ferritin 366 ng/mL (22-378); Iron 63 ug/dL (50-170); Iron Binding Capacity,Total 277 ug/dL (250-450); Iron Binding Capacity,Unsat 214 ug/dL (228-428); LDH 222 U/L (84-246); Vitamin B12 733 pg/mL (180-914)
[2024-07-26 10:26] LABS: FOLATES,SERUM (FOLIC ACID) 9.87 ng/mL (4.60-34.80)
[2024-07-26 10:41] LABS: Fibrinogen 392 mg/dl (203-444); Prothrombin Time (Protime)PT. 32.1 SECONDS (11.7-14.9)
[2024-08-01 14:09] LABS: Methylmalonic Acid Bld 377 nmol/L (0-378)
[2024-08-08 16:16] LABS: Prothrombin Time (Protime)PT. 42.1 SECONDS (11.7-14.9)
[2024-08-08 17:36] LABS: International Normalized Ratio 4.3
== END 2024-08-08 18:00 | disposition home or self-care (01) ==
LOC: LAB 14:13
PROVIDERS: PCP Internal Medicine; Referring Provider Internal Medicine; Visit Provider Physician Assistant Medical
DX: Z79.01 Long term (current) use of anticoagulants (principal); Z95.2 Presence of prosthetic heart valve; I48.0 Paroxysmal atrial fibrillation; D64.9 Anemia, unspecified; E03.9 Hypothyroidism, unspecified
CPT/HCPCS: 36415; 82607; 82728; 82746; 83540; 83550; 83615; 83921; 84443; 85045; 85384; 85610; 86880

== ENCOUNTER 2024-08-22 11:04 | Outpatient (RCR) | payer MEDICARE, SELFPAY ==
[2024-08-22 11:44] LABS: Prothrombin Time (Protime)PT. 31.9 SECONDS (11.7-14.9)
== END 2024-08-22 18:00 | disposition home or self-care (01) ==
LOC: LAB 11:04
PROVIDERS: PCP Internal Medicine; Referring Provider Internal Medicine; Visit Provider Physician Assistant Medical
DX: Z79.01 Long term (current) use of anticoagulants (principal); Z95.2 Presence of prosthetic heart valve; I48.0 Paroxysmal atrial fibrillation
CPT/HCPCS: 36415; 85610

== ENCOUNTER → 2025-01-28 | Outpatient (CLI) | payer MEDICARE, SELFPAY ==
[2025-01-28 15:08] LABS: Hematocrit 30.4 % (37-47); Hemoglobin 9.9 g/dL (12.0-15.0); Immature Granulocytes Count 0.020 X10^3/uL (0.0-0.0); Mean Corp Hgb Conc 32.6 g/dL (32-36); Mean Corpuscular Volume 87.4 fL (81-99); Mean Platelet Vol. 10.1 fl (6.2-12.0); NRBC Flagged by Analyzer 0 % (0-5); Platelet Count 177 K/mm3 (150-450); RBC Distribution Width CV 15.7 % (11.6-14.6); RBC Distribution Width SD 50.3 fl (35.1-43.9); Red Blood Count 3.48 M/mm3 (4.2-5.4); White Blood Count 6.3 K/mm3 (4.4-11.0)
== END | disposition home or self-care (01) ==
LOC: LAB 14:12
PROVIDERS: PCP Internal Medicine; Referring Provider Student in an Organized Health Care Education/Training Program; Visit Provider Student in an Organized Health Care Education/Training Program
DX: E03.9 Hypothyroidism, unspecified (principal)
CPT/HCPCS: 36415; 84443; 85025